=== PATIENT | female | born 1950 | race Caucasian/White ===

== ENCOUNTER 2019-08-17 06:00 | Outpatient (RCR) | payer SELFPAY | END 2019-08-30 00:01 | LOC: TPT 06:00 | PROVIDERS: Family Provider Nurse Practitioner Family; Visit Provider Orthopaedic Surgery | DX: M75.02 Adhesive capsulitis of left shoulder (principal); M75.01 Adhesive capsulitis of right shoulder | CPT/HCPCS: 97032; 97110 ×3; 97140 ×3; 97161; 97530; G0283 ==

== ENCOUNTER 2019-08-31 06:00 | Outpatient (RCR) | payer MEDICARE, MEDICAID, SELFPAY | END 2019-09-30 23:59 | disposition home or self-care (01) | LOC: TPT 06:00 | PROVIDERS: Family Provider Nurse Practitioner Family; PCP Nurse Practitioner Family; Visit Provider Orthopaedic Surgery | DX: M75.01 Adhesive capsulitis of right shoulder (principal) | CPT/HCPCS: 97110; 97140; G0283 ==

== ENCOUNTER 2019-10-01 06:00 | Outpatient (RCR) | payer MEDICARE, MEDICAID, SELFPAY | END 2019-10-29 23:59 | disposition home or self-care (01) | LOC: TPT 06:00 | PROVIDERS: Visit Provider Orthopaedic Surgery | DX: M75.02 Adhesive capsulitis of left shoulder (principal); M75.01 Adhesive capsulitis of right shoulder | CPT/HCPCS: 97110; 97140 ==

== ENCOUNTER 2020-04-23 12:52 | Outpatient (CLI) | payer MEDICARE, MEDICAID, SELFPAY ==
--- NOTE | 2020-04-23 13:03 | MM_ITS ---
WS: [id number] BILATERAL DIGITAL SCREENING MAMMOGRAPHY WITH CAD CLINICAL INFORMATION: SCREENING HISTORY: Screening mammogram. No current complaints. COMPARISON: April 21, 2019 TECHNIQUE: Bilateral CC and MLO views. FINDINGS: Left breast biopsy clip. Scattered fibroglandular densities bilaterally. No suspicious focal mass, asymmetry, calcifications, or architectural distortion. No evidence of malignancy. A few punctate calcifications. MM/[place] [id number] IMPRESSION: BI-RADS: 2-Benign FOLLOW UP: 1 Year Follow-up Recommend return to annual screening mammography.
== END 2020-04-23 12:53 | disposition home or self-care (01) ==
LOC: RADSHAW 12:57
PROVIDERS: PCP Nurse Practitioner Family; Visit Provider Nurse Practitioner Family
DX: Z12.31 Encounter for screening mammogram for malignant neoplasm of breast (principal)
CPT/HCPCS: 77067

== ENCOUNTER → 2020-11-13 09:19 | Outpatient (BNVA) | payer MEDICARE, MEDICAID, SELFPAY | PROVIDERS: PCP Nurse Practitioner Family; Visit Provider Obstetrics & Gynecology | DX: D25.9 Leiomyoma of uterus, unspecified (principal) | CPT/HCPCS: 76830 ==

== ENCOUNTER → 2020-11-20 11:20 | Outpatient (BNVA) | payer MEDICARE, MEDICAID, SELFPAY | PROVIDERS: PCP Nurse Practitioner Family; Visit Provider Obstetrics & Gynecology | DX: N95.0 Postmenopausal bleeding (principal) | CPT/HCPCS: 88305; 88360 ==

== ENCOUNTER 2021-02-25 10:08 | Outpatient (CLI) | payer MEDICARE, MEDICAID, SELFPAY ==
--- NOTE | 2021-02-26 09:39 | ONC CON_ITS ---
Dr. Li New Patient Note Patient: Alycia Kurtz Unit #: [id number]: 1950 Dicatated By: Fede Li M.D.Date of Visit: Feb 25, 2021 Onc MED New Patient/Consult Referring Physician: Dr. Alden Soto M.D. Chief Complaint: Endometrial cancer. 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 She had presented with postmenopausal bleeding. Her transvaginal ultrasound on 11/13/2020 showed evidence of uterine leiomyoma in the fundus measuring 1.44 x 1.65 x 3.05 cm. The endometrium measured 1.44 cm. She underwent endometrial biopsy on 11/20/2020. Pathology showed grade 2 endometrioid adenocarcinoma. She was referred to Dr. Soto. On 01/03/2021 she underwent robotic assisted total laparoscopic hysterectomy, bilateral salpingo-oophorectomy, bilateral pelvic sentinel lymph node biopsies, and cystoscopy with left ureteral stent placement. Pathology again showed grade 2 endometrial endometrioid adenocarcinoma measuring 7 x 6.8 cm. The depth of deepest myometrial invasion was 13 mm with the maximum myometrial thickness at that point measuring of 17 mm. The ectocervical/vaginal cuff and the parametrial/paracervical margins were uninvolved, but the right ovary did show focal involvement with endometrioid adenocarcinoma. There was metastatic carcinoma identified in the left external iliac sentinel lymph node and there was micrometastasis noted in the right external iliac sentinel lymph node. She is seen now for further management. She has had a good recovery from the surgery, but she does complain that she is tired all the time. She has limited activity due to the fatigue and to chronic pain, which appears to be due to a combination of degenerative arthritis and fibromyalgia. She manages the pain with a combination of tramadol and Voltaren gel. Her ECOG score is 2. She says she is eating, though not as much, and her weight is down about 30 pounds. She has not had fever. She sweats all the time, but that is chronic. She has allergic rhinitis and asthma, and she says her breathing is not real good. She has chronic cough. She does not complain of chest pain. She has very occasional nausea. She has a history of ulcerative colitis, which he manages that adequately now with probiotic. She has no complaints with bladder function. Her most significant pain is in the neck/shoulders and in the knees and feet. She does not complain of headache. She has just occasional dizziness. She was having numbness in her hands prior to the surgery, but that seems to have resolved. She has no other focal neurologic symptoms. Past Medical History: Her medical history includes anxiety, asthma, degenerative arthritis, fibromyalgia, history of ulcerative colitis, hyperlipidemia, hypertension, hypothyroidism, obesity, and type II diabetes. Past Surgical History: She underwent robotic assisted total laparoscopic hysterectomy, bilateral salpingo-oophorectomy, bilateral pelvic sentinel lymph node biopsies, and cystoscopy with left ureteral stent placement on 01/03/2021. Her only other surgery was a back procedure for a ruptured disc.in 1982. Medications: Arnuity Ellipta 1 Deshler(s) (of 50 mcg/act) Aerosol Powder, Breath Activated Inhalation b.i.d., Atorvastatin Calcium 1 (80 mg) Tablet Oral at bedtime, Benazepril HCl 1 (40 mg) Tablet Oral daily, Cetirizine HCl 1 (10 mg) Tablet Oral daily, Cholecalciferol (1.25 mg ) Capsule Oral q 2 weeks, clonazePAM 1 (1 mg) Tablet Oral t.i.d., Diclofenac Sodium 1 (1 %) Gel (jelly) Topical four times a day PRN, Gabapentin 1 (100 mg) Capsule Oral t.i.d., glipiZIDE 1 (10 mg) Tablet Oral b.i.d., Levothyroxine Sodium 1 (137 mcg) Tablet Oral every am, Meclizine HCl 1 (25 mg) Tablet Oral b.i.d. PRN, metFORMIN HCl 2 Tablet (of 500 mg) Oral b.i.d., Metoprolol Succinate ER 1 (25 mg) Tablet SR 24 HR Oral daily, traMADol HCl 1 (50 mg) Tablet Oral daily, Venlafaxine HCl ER 1 (150 mg) Capsule SR 24 HR Oral daily Allergies: Lyrica and Zocor. Social History: Ms. Kurtz is . She had smoked in the past up to 3 packs of cigarettes daily. She quit smoking approximately 2006. She does not drink alcohol. Family History: Father of brain tumor at age 76. Mother and heart disease at age 84. A sister with metastatic cancer, possibly from breast. An aunt had uterine cancer. Review Of Symptoms: Constitutional - She feels tired all the time and her activity is limited. She is eating, not as much. Her weight is down about 30 pounds. She has not had fever. She does complain that she sweats all the time, but that is chronic. ECOG score is 2, Eyes - No change in vision, ENMT - No hearing loss. She has tinnitus. She has sinus drainage. No mouth sores. No sore throat or difficulty swallowing, Hematologic/Lymphatic - No abnormal bruising or bleeding, Respiratory - She has shortness of breath and she has chronic cough. No pleuritic pain or hemoptysis, Cardiovascular - No angina pain. No palpitations, Gastrointestinal - She has very occasional nausea. She manages acid reflux with a probiotic. No diarrhea or constipation. No blood in the stool or black stools, Genitourinary (F) - No dysuria or hematuria. No urinary frequency. She does have some incontinence, Musculoskeletal - She has joint pain, especially in her neck and shoulders and in her knees and feet, Neurologic - No headache. She occasionally has dizziness. She was having numbness in both hands prior to surgery, but that has resolved now. No other focal neurologic symptoms, Psychiatric - She has some anxiety and depression. No insomnia. Vital Signs: Performed on Feb 25, 2021 11:27: 8, 8, 42.83 (HIGH), 2.20 sq.m, 65 in, 96 %, 89 /min, 18 /min, 131/75 mm(hg), 97.1 F (LOW), and 257.4 lbs (HIGH). Physical Examination: Constitutional - She looks pretty good generally, Eyes - Sclerae nonicteric. Conjunctivae clear, ENMT - No lesions noted in the oral cavity, Neck - No mass or thyromegaly, Hematologic/Lymphatic - No cervical, clavicular, or axillary adenopathy, Respiratory - Lungs sound clear with some decrease in air movement bilaterally, Cardiovascular - Heart rhythm is regular. There is no murmur, gallop, or rub noted, Abdomen - Distended. The incisions appear well-healed. Liver and spleen are not enlarged. There is no abdominal mass or ascites noted and there is no inguinal adenopathy, Back/Spine - No spine or CVA tenderness noted, Extremities - No edema. Pedal pulses are palpable bilaterally, Integumentary - No rashes. No suspicious skin lesions noted, Neurologic - No focal neurologic deficits noted. Problem List: 1. Grade 2 endometrioid adenocarcinoma of the endometrium, stage IIIC1 (pT3a, pN1a, M0). Mismatch repair analysis by IHC showed loss of expression of MLH1 and PMS2 and intact expression of MSH2 and MSH6. Methylation of the H MLH1 promoter region was detected by MLH1 promoter region methylation assay. 2. Hypertension. 3. Hyperlipidemia. 4. Type 2 diabetes. 5. Obesity. 6. Hypothyroidism. 7. Allergic rhinitis and asthma. 8. Degenerative arthritis. 9. Fibromyalgia. 10. History of ulcerative colitis. 11. Anxiety/depression. Problems Addressed with this Encounter and Plan: 1. 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 She underwent robotic assisted total laparoscopic hysterectomy, bilateral salpingo-oophorectomy, bilateral pelvic sentinel lymph node biopsies, and cystoscopy with left ureteral stent placement. Pathology showed focal involvement of the left left ovary and metastatic involvement in the bilateral external iliac sentinel lymph nodes. The pathology findings were reviewed with the patient. We discussed the fact that she has several high risk features with regard to recurrence, namely the depth of myometrial invasion, the metastatic involvement in the left ovary, and the lymph node involvement. As such, she is recommended to undergo post operative adjuvant therapy with both chemoradiation and with adjuvant carboplatin/paclitaxel chemotherapy. I have discussed this with Dr. Turner and plan will be to administer treatment per the PORTEC-3 clinical trial. I did review anticipated side effects with the chemotherapy which may include nausea/vomiting, alopecia, fatigue, low blood counts, and neuropathy, among others. At this point I will arrange for consultation with Dr. Turner and she will be scheduled to see one of the surgeons for placement Port-A-Cath venous access device. I anticipate starting treatment as soon as the radiation planning is completed. 2. She has ureteral stent in place that will need to be removed. I will contact Dr. Johnson to see if we can have that done locally. 3. 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 She will require germline testing, particularly in the context of her family history. Signed By: Fede Li M.D. <<Signature on File>>
== END 2021-02-25 10:09 | disposition home or self-care (01) ==
PROVIDERS: PCP Nurse Practitioner Family; Visit Provider Internal Medicine Medical Oncology
DX: C54.1 Malignant neoplasm of endometrium (principal); I10 Essential (primary) hypertension; E78.5 Hyperlipidemia, unspecified; E11.9 Type 2 diabetes mellitus without complications; E66.9 Obesity, unspecified; E03.9 Hypothyroidism, unspecified; J30.9 Allergic rhinitis, unspecified; J45.909 Unspecified asthma, uncomplicated; M19.90 Unspecified osteoarthritis, unspecified site; M79.7 Fibromyalgia; F41.9 Anxiety disorder, unspecified; F32.9 Major depressive disorder, single episode, unspecified; Z87.19 Personal history of other diseases of the digestive system; Z79.899 Other long term (current) drug therapy
CPT/HCPCS: 99205

== ENCOUNTER 2021-03-01 07:34 | Outpatient (CLI) | payer MEDICARE, MEDICAID, SELFPAY ==
--- NOTE | 2021-03-01 08:00 | XR_ITS ---
WS: [id number] KUB, AP view, 03/01/2021 Clinical Data: URETERAL STENT RETAINED Comparison: None. Findings: A left ureteral stent is in good position probably extending from the left renal pelvis into the blad chrissie. There is a large amount of fecal material and colon gas overlying the kidneys obscuring detail. No abnormal intraabdominal masses or calcifications are seen. There is no dilatated small bowel or ev idence of obstruction. There is osteoarthritic change of the left SI joint and pubic symphysis. XR/XR KUB [id number] Impression: 1. Left ureteral stent. 2. Large amount of fecal material throughout the colon.
== END 2021-03-01 07:35 | disposition home or self-care (01) ==
PROVIDERS: PCP Nurse Practitioner Family; Visit Provider Urology
DX: Z96.0 Presence of urogenital implants (principal)
CPT/HCPCS: 74018; 81003

== ENCOUNTER 2021-03-07 07:01 | Outpatient (CLI) | payer MEDICARE, MEDICAID, SELFPAY ==
--- NOTE | 2021-03-07 09:05 | N.ONRAD NP_ITS ---
Radiation Oncology Consultation Patient Name: Alycia Kurtz Date of : 1950 Date of Service: 03/07/2021 Attending Physician: Devon Turner M.D. Alycia Kurtz was seen in consultation this morning at the request of Fede Li M.D. for consideration of post-operative radiotherapy for the management of a recently diagnosed uterine cancer. 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 A transvaginal ultrasonography completed on November 13, 2020 identified a uterine leiomyoma measuring 3 cm and an endometrial thickness of 1.4 cm. An endometrial biopsy obtained on November 20, 2020 diagnosed a moderately differentiated endometrioid adenocarcinoma (FIGO grade II). A robotic assisted laparoscopic hysterectomy with bilateral salpingo-oophorectomy and bilateral pelvic sentinel lymph node mapping with cystoscopy and left ureteral stent placement was performed by Alden Simental M.D. at [facility] in [place], [place] on January 03, 2021. The pathology report was obtained from the outside hospital (directly reviewed by me) confirmed a FIGO grade 2 endometrioid carcinoma measuring 7 cm x 6.8 cm with myometrial invasion depth of 13 mm (myometrial thickness was 17 mm), involvement of the cervical stroma and right ovary,, and lymphovascular invasion present. Wayne lymph node sampling harvested two pelvic lymph nodes harboring one macrometastasis (left external iliac lymph node) and one micrometastasis (right external iliac lymph node). A mismatch repair analysis by immunohistochemical staining demonstrated loss of expression of the MLH1 gene. The patient was evaluated for postoperative pelvic radiotherapy. I reviewed with her the FIGO staging corresponding to her disease (FIGO stage IIIC1) and the National Comprehensive Cancer Network Guidelines recommending pelvic radiotherapy and vaginal brachytherapy. I also discussed the PORTEC-3 trial that demonstrated adjuvant chemoradiotherapy with or without vaginal brachytherapy in high-risk patients with endometrial cancer improved failure free survival. I would endorse a five week course of pelvic radiotherapy followed by vaginal brachytherapy (cervical stromal invasion was present). A computed tomographic radiotherapy planning scan with contrast in the treatment position will be required to delineate the clinical tumor volumes. The potential toxicities of pelvic radiotherapy were reviewed. The patient has verbalized understanding would like to proceed as recommended. The patient's medical treatment been discussed with Fede Li M.D. Signed by: Dr. Devon Turner 03/07/2021 9:04:29 AM
[2021-03-07 09:57] LABS: Basophils # 0.1 10^3/uL (0.0-0.1); Basophils % 0.9 %; Eosinophils # 0.3 10^3/uL (0.0-0.8); Eosinophils % 2.6 %; Hematocrit 40.1 % (37.0-47.0); Hemoglobin 12.2 g/dL (11.5-15.3); Lymphocytes # 3.2 10^3/uL (0.8-4.8); Lymphocytes % 28.9 %; Mean Corpuscular HGB Conc 30.4 g/dL (30.0-36.0); Mean Corpuscular Hemoglobin 28.4 pg (28.0-34.0); Mean Corpuscular Volume 93.3 fL (81-99); Mean Platelet Volume 10.2 fL (7.4-10.4); Monocytes # 0.7 10^3/uL (0.2-0.9); Monocytes % 6.2 %; Neutrophils # 6.71 10^3/uL (1.8-7.7); Neutrophils % 60.9 %; Nucleated Red Blood Cells % 0 %; Platelet Count 279 10^3/cmm (130-400); Red Cell Distribution Width 12.8 % (12.1-15.1)
[2021-03-07 10:22] LABS: Alanine Aminotransferase 38 U/L (0-33); Albumin Level 4.1 g/dL (3.5-5.2); Alkaline Phosphatase 97 IU/L (35-105); Anion Gap 14.1 (5-19); Aspartate Amino Transferase 28 U/L (0-32); Blood Urea Nitrogen 10 mg/dL (8-23); Calcium 8.7 mg/dL (8.5-10.5); Carbon Dioxide 25 mmol/L (22-29); Chloride 103 mmol/L (98-107); Globulin 2.8 g/dL (1.3-4.6); Glomerular Filtration Rate 71.3 mL/min (90-130); Glucose 179 mg/dL (65-115); Osmolality Calculated 290 mOsm/kg (285-295); Potassium 4.1 mmol/L (3.5-5.1); Sodium 138 mmol/L (136-145); Total Bilirubin 0.2 mg/dL (0.15-1.2); Total Protein 6.9 g/dL (6.6-8.7)
== END 2021-03-07 07:02 | disposition home or self-care (01) ==
PROVIDERS: PCP Nurse Practitioner Family; Visit Provider Radiology Radiation Oncology
DX: C55 Malignant neoplasm of uterus, part unspecified (principal); C77.8 Secondary and unspecified malignant neoplasm of lymph nodes of multiple regions; N95.0 Postmenopausal bleeding; Z79.899 Other long term (current) drug therapy
CPT/HCPCS: 36415; 80053; 85025; 87635; 99205

== ENCOUNTER 2021-03-08 08:43 | Outpatient (CLI) | payer MEDICARE, MEDICAID, SELFPAY ==
--- NOTE | 2021-03-08 10:30 | CT_ITS ---
WS: [id number] CT ABDOMEN AND PELVIS NONCONTRAST HISTORY: URETERAL OBSTRUCTION TECHNIQUE: Imaging performed through the abdomen and pelvis. Coronal and sagittal reformats are submi tted. All CT scans at [facility] use at least one of these dose optimization techniques: automated exposure control; mA and/or kV adjustment per patient size (includes targeted exams where d ose is matched to clinical indication); or iterative reconstruction. DLP: 1838.41 mGy.cm COMPARISON: None available. Lower thorax: Mild dependent changes at the lung bases. Small hiatal hernia. Liver: Hepatic steatosis and granuloma. No bile duct dilatation. Gallbladder: Cholelithiasis without evidence for acute cholecystitis. No bile duct dilatation. Mildly contracted gallbladder. Pancreas: Normal size and attenuation. Normal pancreatic duct. No pancreatitis or mass. Spleen: Normal. Adrenal glands: 5 mm RIGHT adrenal myelolipoma. Negative LEFT adrenal gland. Right kidney: Normal size kidney with no mass or hydronephrosis. Left kidney: Hypodense nodule in the upper pole cannot be further characterized. Coiled pigtail zora ter in the renal pelvis. No obstruction of the kidney. No calcification identified along the course o f the stent. Aorta: Mild atherosclerosis abdominal aorta with no aneurysm. No free fluid, intraperitoneal air or significant lymphadenopathy. GI tract: Moderate constipation with tortuous colon appendix is normal. There are a few small central mesenteric and RIGHT lower quadrant lymph nodes. No adenopathy. Abdominal wall: Small umbilical hernia contains fat only. Pelvis: Prior hysterectomy. Urinary bladder is well distended. Distal LEFT ureteral pigtail catheter is coiled in the bladder. Osseous structures: Mild spondylosis in the lumbar spine. No destructive bone lesions. LEFT femoral n [place]. CT/CT kidney stone [id number] IMPRESSION: 1. LEFT ureteral double pigtail stent coiled appropriately. 2. No LEFT renal obstruction or calcification identified. 3. Cholelithiasis without acute cholecystitis. 4. Hepatic steatosis. 5. Normal appendix. 6. Prior hysterectomy.
== END 2021-03-08 08:44 | disposition home or self-care (01) ==
LOC: RAD 08:50
PROVIDERS: PCP Nurse Practitioner Family; Visit Provider Urology
DX: N13.5 Crossing vessel and stricture of ureter without hydronephrosis (principal); Z96.0 Presence of urogenital implants; Z90.710 Acquired absence of both cervix and uterus; K76.0 Fatty (change of) liver, not elsewhere classified; K80.20 Calculus of gallbladder without cholecystitis without obstruction
CPT/HCPCS: 74176; 81003

== ENCOUNTER 2021-03-12 12:04 | Day surgery (SDC) | payer MEDICARE, MEDICAID, SELFPAY ==
[2021-03-11 17:10] VITALS: BMI 42.3
--- NOTE | 2021-03-12 | SCC_ITS ---
Procedure Done: Placement of PowerPort in the left subclavian vein Fluoroscopic guidance and interpretation for placement of catheter 12.4 seconds of fluoroscopic guidance, for a cumulative dose of 15.14 mGy, was provided to Dr. Rai by the radiology department. C-arm images of the chest were saved for the patient's permanent record. [facility]
--- NOTE | 2021-03-12 12:13 | W.PM.OPSUD ---
Surgery/Procedure H&P Update DATE OF PROCEDURE: March 12, 2021 DATE H&P PERFORMED: 03/11/21 H&P UPDATE INFORMATION: I have reviewed H&P completed within last 30 days, I have examined patient prior to procedure and No changes to prior documentation PLANNED PROCEDURE: Operation Date: 03/12/21 13:55 Proposed Procedures p Portacath Placement 50834 c54.1(Not Applicable) - Adam Rai MD
[2021-03-12 12:43] VITALS: BP 158/98; PULSE 83; RESP 18; TEMP 36.4; O2SAT 96
[2021-03-12 12:54] LABS: Glucose Point of Care 103 mg/dL (70-110)
[2021-03-12] MEDS: sodium chloride 0.9% 1,000 ML 30 ML IV (12:56)
--- NOTE | 2021-03-12 13:23 | SC_ITS ---
WS: [id number] INTRAOPERATIVE TECHNIQUE: 2 Spot fluoroscopic images for intraoperative purposes. FLUOROSCOPY TIME: 12.4 seconds CLINICAL INFORMATION: intra-op COMPARISON: None. FINDINGS: Left Port-A-Cath with tip in the distal SVC. No visualized pneumothorax. SC/C-arm FL for CVA [id number] IMPRESSION: Images obtained for intraoperative purposes.
--- NOTE | 2021-03-12 13:54 | ANES.PREANE2 ---
Documented by User: José Miguel Gonzalez Jr, [employer] MEMBER 03/12/21 13:57 Pre-Anesthetic Assessment Pre-Anesthetic Assessment: Height/Weight: Height 1.65 m Weight 115.212 kg Temp Pulse Resp BP Pulse Ox 97.5 F L 83 18 158/98 96 03/12/21 12:43 03/12/21 12:43 03/12/21 12:43 03/12/21 12:43 03/12/21 12:43 Preop Diagnosis: Endometrial cancer Proposed Procedure: Operation Date: 03/12/21 13:55 Proposed Procedures p Portacath Placement 29113 c54.1(Not Applicable) - Adam Rai MD Familial anesthetic complications: none Was Beta Elizabeth taken within 24 hours: Yes Was Clonidine taken within 24 hours: N/A Last intake: Intake Last Liquid Date 03/12/21 Last Liquid Time 09:00 Last Solid Date 03/11/21 Last Intake: 09:00 Social: Social History: No alcohol and No tobacco Exam: Pre-Anes Outpt Exam: alert, oriented x 3, clear to auscultation bilaterally and regular rate & rhythm Airway: Submandibular: WNL Cervical ROM: WNL MP: 2 Dentition: Full Pulmonary: Pulmonary: Asthma CV/HEM: CV/HEM: HTN : : None reported Hepatic: Hepatic: None reported GI: GI: GERD Metabolic: Metabolic: DM and Thyroid Musc/skel: Musc/skel: Lower Back Pain, OA/DJD and RA Neuropsych: Neuropsych: Anxiety and Depression Anesthetic Plan: ASA status: 3 Anesthesia: MAC Risk of > 500 ml blood loss (7ml/kg in children): No Meds/Allergies Current Medications: Current Medications Generic Name Dose Route Start Last Admin Trade Name Freq PRN Reason Stop Dose Admin Sodium Chloride 1,000 mls @ 30 ml s/hr 03/12/21 12:30 03/12/21 12:56 Sodium Chloride 0.9% IV 03/13/21 12:29 30 mls/hr .Q24H BRANDON Administration PFSH Anesthesia PFSH: Medical History (Updated 03/11/21 @ 14:26 by Adam Rai MD) Endometrial cancer Ureteral obstruction, left Ureteral stent retained Surgical History (Updated 03/11/21 @ 14:26 by Adam Rai MD) History of colonoscopy 10+yrs History of lumbar surgery S/P ASHANTI-BSO Family History Mother , AT 84 Hypertension Diabetes Heart disease Father , AT AGE 76 Cancer BRAIN Social History Alcohol intake: never Marital status: Single Current occupational status: retired History of recent travel: No Data Anesthesia Other Labs: Laboratory Results - last 48 hr 03/12/21 12:52 POC Glucose 103 Cardiac Studies: No Data to Display Documented by User: Ned Yusuf 03/12/21 14:07 PFSH Anesthesia PFSH: Medical History (Updated 03/11/21 @ 14:26 by Adam Rai MD) Endometrial cancer Ureteral obstruction, left Ureteral stent retained Surgical History (Updated 03/11/21 @ 14:26 by Adam Rai MD) History of colonoscopy 10+yrs History of lumbar surgery S/P ASHANTI-BSO Family History Mother , AT 84 Hypertension Diabetes Heart disease Father , AT AGE 76 Cancer BRAIN Social History Alcohol intake: never Marital status: Single Current occupational status: retired History of recent travel: No Data Anesthesia Cardiac Studies: No Data to Display
[2021-03-12] MEDS: heparin, porcine 1,000 unit/mL INJ 10 mL 10000 UNIT INJECTION (14:27)
[2021-03-12] MEDS: lidocaine 1% INJ 20 mL INJECTION (14:27)
[2021-03-12 14:50] VITALS: BP 189/98; PULSE 80; RESP 20; TEMP 36.8; O2SAT 96
[2021-03-12 14:55] VITALS: BP 193/97; PULSE 78; RESP 17; O2SAT 96
--- NOTE | 2021-03-12 14:57 | ANE.PACU2 ---
Inpatient post-anesthesia follow up: Airway intact: Yes Vital signs: Temperature 98.3 F Pulse Rate 78 Respiratory Rate 17 Blood Pressure 193/97 Pulse Oximetry 96 Oxygen Delivery Me thod Room Air Oxygen Flow Rate Fraction of Inspir ed Oxygen Hydration adequate: Yes Nausea and vomiting: No Pain level: 1 Mental status: Baseline
[2021-03-12 15:00] VITALS: BP 168/92; PULSE 76; RESP 20; TEMP 37; O2SAT 97
--- NOTE | 2021-03-12 15:00 | SUR.PHASEI ---
pt awake alert c/o of knee pain that was relieved by repositioning, pt on RA , taking ice chips, lt chest sites D/I
[2021-03-12 15:14] VITALS: BP 174/96; PULSE 69; RESP 18; TEMP 37; O2SAT 97
--- NOTE | 2021-03-13 14:43 | PM.OP ---
Operative Report Date of procedure: March 12, 2021 Pre-op Diagnosis: Endometrial cancer Post-op diagnosis: same Procedure Done: Placement of PowerPort in the left subclavian vein Fluoroscopic guidance and interpretation for placement of catheter Pathology: none sent Surgeon: Adam Rai Anesthesia: MAC Condition: stable Disposition: PACU Procedure: The patient was taken to the Operating Room and the chest and neck bilaterally were prepped and draped in a sterile manner after the antibiotic had been administered and shoulder rolls had been placed. A total of 10 mL of 1% lidocaine with 0.5% Marcaine was infiltrated under the clavicle on the left side at the site of the planned entry into the subclavian vein. An introducer needle was then used to access the subclavian vein under the clavicle and after withdrawing blood syringe was removed and a guidewire passed under fluoroscopy into the superior vena cava. The site of the planned port was then marked on the chest and a 15 blade was used to make a 3 cm skin incision this was extended into the subcutaneous tissue using electrocautery and a subcutaneous pocket over the pectoralis fascia was created 2-0 Vicryl suture was used to suture the port to the pectoral fascia in the pocket on 3 sides. The catheter, after having been flushed with hep saline, was attached to the tunneler and a tunnel created between the port site and the subclavian vein entry site. Under fluoroscopy the dilator sheath was passed over the guidewire into the proximal superior vena cava. The inner dilator was removed and the sheath left behind and~ the catheter was introduced through the peel-away sheath with the tip in the superior vena cava. The peel-away sheath was removed. The proximal end of the catheter was cut to the right size and was attached to the port. Using a Weiner needle the port was accessed, it withdrew blood easily and flushed easily. A final 5cc of heparin was used to flush the PowerPort. The subcutaneous tissue was approximated using interrupted 3-0 Vicryl sutures and the skin at the introducer site and the port site was closed using subcuticular running 4-0 Monocryl sutures. Surgical glue was applied and the patient was stable throughout the procedure. Fluoroscopic guidance and interpretation was performed for introduction of the guidewire in the left subclavian vein, passage of dilator and placement of catheter tip in the distal superior vena cava.
== END 2021-03-12 16:11 | disposition home or self-care (01) ==
PROVIDERS: PCP Nurse Practitioner Family; Visit Provider Surgery
PROC: (CPT 36556; principal; 2021-03-12 13:55)
DX: C54.1 Malignant neoplasm of endometrium (principal); J45.909 Unspecified asthma, uncomplicated; I10 Essential (primary) hypertension; E11.9 Type 2 diabetes mellitus without complications; K21.9 Gastro-esophageal reflux disease without esophagitis; M19.90 Unspecified osteoarthritis, unspecified site
CPT/HCPCS: 36556; 36416; 76000; 77001; 82962; C1788; J0690; J1644; J3010; J3490; J7030

== ENCOUNTER 2021-03-29 05:48 | Outpatient (RCR) | payer MEDICARE, MEDICAID, SELFPAY ==
--- NOTE | 2021-03-20 | CT_ITS ---
Radiation Therapy Planning CT images; total exam DLP: 851.95 mGy-cm MTDD
[2021-03-26 09:33] LABS: Basophils # 0.1 10^3/uL (0.0-0.1); Basophils % 0.8 %; Eosinophils # 0.3 10^3/uL (0.0-0.8); Hematocrit 39.8 % (37.0-47.0); Hemoglobin 12.4 g/dL (11.5-15.3); Lymphocytes # 3.7 10^3/uL (0.8-4.8); Mean Corpuscular HGB Conc 31.2 g/dL (30.0-36.0); Mean Corpuscular Hemoglobin 28.5 pg (28.0-34.0); Mean Corpuscular Volume 91.5 fL (81-99); Mean Platelet Volume 10.7 fL (7.4-10.4); Monocytes # 0.7 10^3/uL (0.2-0.9); Monocytes % 4.7 %; Neutrophils # 9.38 10^3/uL (1.8-7.7); Neutrophils % 66.1 %; Nucleated Red Blood Cells % 0 %; Platelet Count 317 10^3/cmm (130-400); Red Blood Count 4.35 10^6/uL (4.1-5.3); Red Cell Distribution Width 12.8 % (12.1-15.1); White Blood Count 14.2 10^3/uL (4.0-10.0)
[2021-03-26] MEDS: sodium chloride 0.9% 250 ML 75 ML IV (09:40)
[2021-03-26 09:58] LABS: Alanine Aminotransferase 45 U/L (0-33); Albumin Level 4.2 g/dL (3.5-5.2); Alkaline Phosphatase 108 IU/L (35-105); Anion Gap 17.3 (5-19); Aspartate Amino Transferase 39 U/L (0-32); Blood Urea Nitrogen 12 mg/dL (8-23); Calcium 8.9 mg/dL (8.5-10.5); Carbon Dioxide 23 mmol/L (22-29); Chloride 98 mmol/L (98-107); Globulin 3.2 g/dL (1.3-4.6); Glomerular Filtration Rate 55.1 mL/min (90-130); Glucose 200 mg/dL (65-115); Osmolality Calculated 283 mOsm/kg (285-295); Potassium 4.3 mmol/L (3.5-5.1); Sodium 134 mmol/L (136-145); Total Bilirubin 0.3 mg/dL (0.15-1.2); Total Protein 7.4 g/dL (6.6-8.7)
[2021-03-26] MEDS: palonosetron 0.25 mg/5 mL SDV IV (12:03)
[2021-03-26] MEDS: fosaprepitant 150 MG in sodium chloride 0.9% 150 ML 300 MG IV (12:25)
[2021-03-26] MEDS: FUROsemide 10 mg/mL SDV 2mL 20 MG IV (14:17)
[2021-03-26] MEDS: potassium chloride 20 MEQ in sodium chloride 0.9% 500 ML 250 MEQ IV (14:19)
== END 2021-03-30 23:59 | disposition home or self-care (01) ==
LOC: ONCMED 05:48
PROVIDERS: Absent Provider Specialist; PCP Nurse Practitioner Family; Visit Provider Internal Medicine Medical Oncology
DX: Z51.0 Encounter for antineoplastic radiation therapy (principal); Z51.11 Encounter for antineoplastic chemotherapy; C54.1 Malignant neoplasm of endometrium; Z79.899 Other long term (current) drug therapy
CPT/HCPCS: 77300; 77301; 77334; 77338; 77386; 77470; 80053; 85025; 96366; 96367; 96375; 96413; J1100; J1453; J1940; J2469; J3475; J3480; J7030; J7040; J7050; J9060

== ENCOUNTER 2021-04-29 05:32 | Outpatient (RCR) | payer MEDICARE, MEDICAID, SELFPAY ==
--- NOTE | 2021-04-01 09:00 | ONCRAD TMN_ITS ---
Radiation Oncology Treatment Management Note Patient Name: Alycia Kurtz Date of : 1950 Date of Service: 04/01/2021 Attending Physician: Devon Turner M.D. Alycia Kurtz is a 70 year old white female diagnosed with a FIGO stage IIIC1 uterine cancer. A robotic assisted laparoscopic hysterectomy with bilateral salpingo-oophorectomy and bilateral pelvic sentinel lymph node mapping with cystoscopy and left ureteral stent placement was performed by Alden Simental M.D. at [facility] in [place], [place] on January 03, 2021. The pathology report diagnosed a FIGO grade 2 endometrioid carcinoma measuring 7 cm x 6.8 cm with myometrial invasion depth of 13 mm (myometrial thickness was 17 mm), involvement of the cervical stroma, right ovary, and lymphovascular invasion present. [place] lymph node sampling harvested two pelvic lymph nodes harboring one macrometastasis (left external iliac lymph node) and one micrometastasis (right external iliac lymph node). A mismatch repair analysis by immunohistochemical staining demonstrated loss of expression of the MLH1 gene. The patient has received 9 Gy of a prescribed 45 [place] with an intensity modulated radiotherapy plan utilizing a step and shoot treatment technique. [id number] brachytherapy will be administered subsequent to pelvic radiotherapy. Weekly cisplatin (40 mg/m2) has been prescribed. Upon review of systems, she denied any gastrointestinal complaints related to radiotherapy. On physical examination, the patient weighed 265 lbs. Her temperature was 97.3 ???F with a blood pressure of 140/73 mmHg. Her pulse was 84 bpm and her respiratory rate was 20. No erythema within the treatment [place]. Continue pelvic radiotherapy as prescribed. Signed by: Dr. Devon Turner 04/01/2021 8:57:48 AM
[2021-04-01 09:19] LABS: Basophils # 0.1 10^3/uL (0.0-0.1); Basophils % 0.6 %; Eosinophils # 0.2 10^3/uL (0.0-0.8); Hematocrit 39.9 % (37.0-47.0); Hemoglobin 12.7 g/dL (11.5-15.3); Lymphocytes # 2.4 10^3/uL (0.8-4.8); Lymphocytes % 21.9 %; Mean Corpuscular HGB Conc 31.8 g/dL (30.0-36.0); Mean Corpuscular Hemoglobin 28.8 pg (28.0-34.0); Mean Corpuscular Volume 90.5 fL (81-99); Mean Platelet Volume 10.4 fL (7.4-10.4); Monocytes # 0.5 10^3/uL (0.2-0.9); Monocytes % 4.7 %; Neutrophils # 7.67 10^3/uL (1.8-7.7); Neutrophils % 70.1 %; Nucleated Red Blood Cells % 0 %; Platelet Count 293 10^3/cmm (130-400); Red Blood Count 4.41 10^6/uL (4.1-5.3); Red Cell Distribution Width 12.6 % (12.1-15.1)
[2021-04-01 09:46] LABS: Alanine Aminotransferase 33 U/L (0-33); Albumin Level 4.2 g/dL (3.5-5.2); Alkaline Phosphatase 102 IU/L (35-105); Anion Gap 15.2 (5-19); Aspartate Amino Transferase 27 U/L (0-32); Blood Urea Nitrogen 14 mg/dL (8-23); Calcium 8.9 mg/dL (8.5-10.5); Carbon Dioxide 23 mmol/L (22-29); Chloride 101 mmol/L (98-107); Globulin 3.1 g/dL (1.3-4.6); Glomerular Filtration Rate 71.3 mL/min (90-130); Glucose 144 mg/dL (65-115); Osmolality Calculated 283 mOsm/kg (285-295); Potassium 4.2 mmol/L (3.5-5.1); Sodium 135 mmol/L (136-145); Total Bilirubin 0.2 mg/dL (0.15-1.2); Total Protein 7.3 g/dL (6.6-8.7)
[2021-04-02] MEDS: HYDROcodone-acetaminophen 10-325 mg Tablet 0.5 TAB PO (09:45)
[2021-04-02] MEDS: alteplase 1 mg/mL SDV 2 mL 2 MG IV (09:49)
[2021-04-02] MEDS: sodium chloride 0.9% 250 ML 75 ML IV (10:52)
[2021-04-02] MEDS: fosaprepitant 150 MG in sodium chloride 0.9% 150 ML 300 MG IV (12:20)
[2021-04-02] MEDS: palonosetron 0.25 mg/5 mL SDV IV (12:48)
[2021-04-02] MEDS: FUROsemide 10 mg/mL SDV 2mL 20 MG IV (14:14)
[2021-04-02] MEDS: potassium chloride 20 MEQ in sodium chloride 0.9% 500 ML 250 MEQ IV (14:16)
--- NOTE | 2021-04-02 18:43 | ONC FU_ITS ---
Dr. Li Patient Follow-Up Note Patient: Alycia Kurtz Unit #: [id number]: 1950 Dicatated By: Fede Li M.D.Date of Visit:Apr 02, 2021 Onc Med Follow-up/Prog Note Chief Complaint: Endometrial cancer. 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 She had presented with postmenopausal bleeding. Her transvaginal ultrasound on 11/13/2020 showed evidence of uterine leiomyoma in the fundus measuring 1.44 x 1.65 x 3.05 cm. The endometrium measured 1.44 cm. She underwent endometrial biopsy on 11/20/2020. Pathology showed grade 2 endometrioid adenocarcinoma. She was referred to Dr. Soto. On 01/03/2021 she underwent robotic assisted total laparoscopic hysterectomy, bilateral salpingo-oophorectomy, bilateral pelvic sentinel lymph node biopsies, and cystoscopy with left ureteral stent placement. Pathology again showed grade 2 endometrial endometrioid adenocarcinoma measuring 7 x 6.8 cm. The depth of deepest myometrial invasion was 13 mm with the maximum myometrial thickness at that point measuring of 17 mm. The ectocervical/vaginal cuff and the parametrial/paracervical margins were uninvolved, but the right ovary did show focal involvement with endometrioid adenocarcinoma. There was metastatic carcinoma identified in the left external iliac sentinel lymph node and there was micrometastasis noted in the right external iliac sentinel lymph node. With those findings, she was recommended to undergo postoperative chemoradiation followed by adjuvant chemotherapy with carboplatin/paclitaxel. Her other medical illnesses include hypertension, hyperlipidemia, type 2 diabetes, hypothyroidism, and asthma. She has chronic pain associated with degenerative arthritis and fibromyalgia. She has a history of ulcerative colitis, and she also has anxiety/depression. She has a history of smoking, previously up to 3 packs of cigarettes daily. She quit smoking in 2006. INTERIM HISTORY: She began radiation concurrently with weekly cisplatin chemotherapy on 03/26/2021. She tolerated the initial cisplatin infusion without acute toxicity. She is seen for a follow-up visit. She has been feeling okay. She says her energy is not so good. Activity is also limited due to arthritis pain, which is mainly in the knees. Her ECOG score is 1. Her appetite comes and goes. She has not had fever. She has been having some sweating every evening. She has sinus drainage and cough. She has shortness of breath with activity. She does not complain of chest pain. She has had only rare episodes of nausea. She is not having acid reflux. Bowel and bladder function have been okay. She has pain in her knees and in her lower back, and she has limited mobility. She sometimes has headache and she also has had some dizziness. She has no numbness/paresthesia or other focal neurologic symptoms. Medications: Arnuity Ellipta 1 [place](s) (of 50 mcg/act) Aerosol Powder, Breath Activated Inhalation b.i.d., Atorvastatin Calcium 1 (80 mg) Tablet Oral at bedtime, Benazepril HCl 1 (40 mg) Tablet Oral daily, Cetirizine HCl 1 (10 mg) Tablet Oral daily, Cholecalciferol (1.25 mg ) Capsule Oral q 2 weeks, clonazePAM 1 (1 mg) Tablet Oral t.i.d., Diclofenac Sodium 1 (1 %) Gel (jelly) Topical four times a day PRN, Gabapentin 1 (100 mg) Capsule Oral t.i.d., glipiZIDE 1 (10 mg) Tablet Oral b.i.d., Levothyroxine Sodium 1 (137 mcg) Tablet Oral every am, Meclizine HCl 1 (25 mg) Tablet Oral b.i.d. PRN, metFORMIN HCl 2 Tablet (of 500 mg) Oral b.i.d., Metoprolol Succinate ER 1 (25 mg) Tablet SR 24 HR Oral daily, traMADol HCl 1 (50 mg) Tablet Oral daily, Venlafaxine HCl ER 1 (150 mg) Capsule SR 24 HR Oral daily Allergies: Lyrica and Zocor. Vital Signs: Performed on Apr 02, 2021 08:59 Height - 65.00 in Weight - 257 lbs (LOW) BSA - 2.20 sq.m BMI - 42.77 (HIGH) Temperature - 96 F (LOW) Pulse - 88 /min Respiration - 18 /min BP - 155/80 mm(hg) (HIGH) O2 Sat - 96 % Pain - 8 Fatigue - 6 Physical Examination: Constitutional - She looks pretty good generally, though she does have limited mobility, Eyes - Sclerae nonicteric. Conjunctivae clear, ENMT - No lesions noted in the oral cavity, Hematologic/Lymphatic - No cervical, clavicular, or axillary adenopathy, Respiratory - Lungs sound clear with some decrease in air movement bilaterally, Cardiovascular - Heart rhythm is regular. There is no murmur, gallop, or rub noted, Abdomen - Moderaely distended. Liver and spleen are not enlarged. There is no abdominal mass or ascites noted and there is no inguinal adenopathy, Extremities - No edema, Neurologic - No focal neurologic deficits noted. Lab/Imaging: CBC shows hemoglobin 12.7 g, white blood cell count 11,000, and platelet count 293,000. Comprehensive metabolic profile is unremarkable. Problem List: 1. Grade 2 endometrioid adenocarcinoma of the endometrium, stage IIIC1 (pT3a, pN1a, M0). Mismatch repair analysis by IHC showed loss of expression of MLH1 and PMS2 and intact expression of MSH2 and MSH6. Methylation of the MLH1 promoter region was detected by MLH1 promoter region methylation assay. 2. Hypertension. 3. Hyperlipidemia. 4. Type 2 diabetes. 5. Obesity. 6. Hypothyroidism. 7. Allergic rhinitis and asthma. 8. Degenerative arthritis. 9. Fibromyalgia. 10. History of ulcerative colitis. 11. Anxiety/depression. Problems Addressed with this Encounter and Plan: 1. 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 She underwent robotic assisted total laparoscopic hysterectomy, bilateral salpingo-oophorectomy, bilateral pelvic sentinel lymph node biopsies, and cystoscopy with left ureteral stent placement. Pathology showed focal involvement of the left left ovary and metastatic involvement in the bilateral external iliac sentinel lymph nodes. With those findings she was recommended to undergo post operative chemoradiation followed by adjuvant carboplatin/paclitaxel chemotherapy. She began radiation concurrently with weekly cisplatin chemotherapy on 03/26/2021. She had no acute toxicity with the initial cisplatin infusion. She continues to have limited mobility associated with arthritis pain in her knees and back and she also does have some component of fatigue. Overall, though, she appears to be tolerating her treatment well. She will proceed with her week to cisplatin at 40 mg/m??? by IV infusion. She will be scheduled for a follow-up visit in 1 week. 2. 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 She will require germline testing, particularly in the context of her family history. Signed By: Fede Li M.D. <<Signature on File>>
[2021-04-08 09:00] LABS: Basophils # 0.1 10^3/uL (0.0-0.1); Basophils % 0.6 %; Eosinophils # 0.2 10^3/uL (0.0-0.8); Eosinophils % 1.7 %; Hemoglobin 11.9 g/dL (11.5-15.3); Lymphocytes # 1.2 10^3/uL (0.8-4.8); Mean Corpuscular HGB Conc 31.3 g/dL (30.0-36.0); Mean Corpuscular Hemoglobin 28.3 pg (28.0-34.0); Mean Corpuscular Volume 90.5 fL (81-99); Mean Platelet Volume 9.9 fL (7.4-10.4); Monocytes # 0.5 10^3/uL (0.2-0.9); Monocytes % 5.4 %; Neutrophils # 7.38 10^3/uL (1.8-7.7); Nucleated Red Blood Cells % 0 %; Platelet Count 201 10^3/cmm (130-400); Red Cell Distribution Width 12.9 % (12.1-15.1); White Blood Count 9.3 10^3/uL (4.0-10.0)
--- NOTE | 2021-04-08 09:24 | ONCRAD TMN_ITS ---
Radiation Oncology Treatment Management Note Patient Name: Alycia Kurtz Date of : 1950 Date of Service: 04/08/2021 Attending Physician: Devon Turner M.D. Alycia Kurtz is a 70 year old white female diagnosed with a FIGO stage IIIC1 uterine cancer. A robotic assisted laparoscopic hysterectomy with bilateral salpingo-oophorectomy and bilateral pelvic sentinel lymph node mapping with cystoscopy and left ureteral stent placement was performed by Alden Simental M.D. at [facility] in [place], [place] on January 03, 2021. The pathology report diagnosed a FIGO grade 2 endometrioid carcinoma measuring 7 cm x 6.8 cm with myometrial invasion depth of 13 mm (myometrial thickness was 17 mm), involvement of the cervical stroma, right ovary, and lymphovascular invasion present. [place] lymph node sampling harvested two pelvic lymph nodes harboring one macrometastasis (left external iliac lymph node) and one micrometastasis (right external iliac lymph node). A mismatch repair analysis by immunohistochemical staining demonstrated loss of expression of the MLH1 gene. The patient has received 18 Gy of a prescribed 45 [place] with an intensity modulated radiotherapy plan utilizing a step and shoot treatment technique. [id number] brachytherapy will be administered subsequent to pelvic radiotherapy. Weekly cisplatin (40 mg/m2) has been prescribed. Upon review of systems, she described diarrhea. On physical examination, the patient weighed 261 lbs. Her temperature was 97 ???F with a blood pressure of 115/67 mmHg. Her pulse was 85 bpm and her respiratory rate was 18. No erythema within the treatment [place]. Continue pelvic radiotherapy as planned. Imodium was recommended. Signed by: Dr. Devon Turner 04/08/2021 9:22:19 AM
[2021-04-08 09:31] LABS: Alanine Aminotransferase 24 U/L (0-33); Alkaline Phosphatase 89 IU/L (35-105); Anion Gap 18.4 (5-19); Aspartate Amino Transferase 26 U/L (0-32); Blood Urea Nitrogen 9 mg/dL (8-23); Calcium 8.5 mg/dL (8.5-10.5); Carbon Dioxide 24 mmol/L (22-29); Chloride 100 mmol/L (98-107); Globulin 2.9 g/dL (1.3-4.6); Glomerular Filtration Rate 99.1 mL/min (90-130); Glucose 115 mg/dL (65-115); Osmolality Calculated 286 mOsm/kg (285-295); Potassium 4.4 mmol/L (3.5-5.1); Sodium 138 mmol/L (136-145); Total Bilirubin 0.4 mg/dL (0.15-1.2); Total Protein 6.9 g/dL (6.6-8.7)
[2021-04-09] MEDS: sodium chloride 0.9% 250 ML 75 ML IV (10:57)
[2021-04-09] MEDS: alteplase 1 mg/mL SDV 2 mL 2 MG IV (12:41)
[2021-04-09] MEDS: fosaprepitant 150 MG in sodium chloride 0.9% 150 ML 300 MG IV (13:00)
[2021-04-09] MEDS: palonosetron 0.25 mg/5 mL SDV IV (13:36)
[2021-04-09] MEDS: FUROsemide 10 mg/mL SDV 2mL 20 MG IV (15:03)
[2021-04-09] MEDS: potassium chloride 20 MEQ in sodium chloride 0.9% 500 ML 250 MEQ IV (15:04)
--- NOTE | 2021-04-09 18:14 | ONC FU_ITS ---
Dr. Li Patient Follow-Up Note Patient: Alycia Kurtz Unit #: [id number]: 1950 Dicatated By: Fede Li M.D.Date of Visit:Apr 09, 2021 Onc Med Follow-up/Prog Note Chief Complaint: Endometrial cancer. 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 She had presented with postmenopausal bleeding. Her transvaginal ultrasound on 11/13/2020 showed evidence of uterine leiomyoma in the fundus measuring 1.44 x 1.65 x 3.05 cm. The endometrium measured 1.44 cm. She underwent endometrial biopsy on 11/20/2020. Pathology showed grade 2 endometrioid adenocarcinoma. She was referred to Dr. Soto. On 01/03/2021 she underwent robotic assisted total laparoscopic hysterectomy, bilateral salpingo-oophorectomy, bilateral pelvic sentinel lymph node biopsies, and cystoscopy with left ureteral stent placement. Pathology again showed grade 2 endometrial endometrioid adenocarcinoma measuring 7 x 6.8 cm. The depth of deepest myometrial invasion was 13 mm with the maximum myometrial thickness at that point measuring of 17 mm. The ectocervical/vaginal cuff and the parametrial/paracervical margins were uninvolved, but the right ovary did show focal involvement with endometrioid adenocarcinoma. There was metastatic carcinoma identified in the left external iliac sentinel lymph node and there was micrometastasis noted in the right external iliac sentinel lymph node. With those findings, she was recommended to undergo postoperative chemoradiation followed by adjuvant chemotherapy with carboplatin/paclitaxel. Her other medical illnesses include hypertension, hyperlipidemia, type 2 diabetes, hypothyroidism, and asthma. She has chronic pain associated with degenerative arthritis and fibromyalgia. She has a history of ulcerative colitis, and she also has anxiety/depression. She has a history of smoking, previously up to 3 packs of cigarettes daily. She quit smoking in 2006. INTERIM HISTORY: She began radiation concurrently with weekly cisplatin chemotherapy on 03/26/2021. She tolerated the initial cisplatin infusion without acute toxicity, and she continued with her week to cisplatin on 04/02/2021. She is seen for a follow-up visit. She has been feeling pretty good generally. Last week she had developed pretty severe, but it resolved after treatment with Imodium. Diarrhea for 3 or 4 days her energy is about the same. She is doing light work. ECOG score is 1. Appetite is pretty good. She has no fever or night sweats. She has some allergy related sinus drainage and cough. She also has some shortness of breath. She does not complain of chest pain. She has no other GI or complaints. She has musculoskeletal pain related to degenerative arthritis and fibromyalgia. Lately the pain is been a little better. She does not complain of headache. She does have some dizziness, which is positional. She has no numbness/paresthesia or other focal neurologic symptoms. Medications: Arnuity Ellipta 1 [place](s) (of 50 mcg/act) Aerosol Powder, Breath Activated Inhalation b.i.d., Atorvastatin Calcium 1 (80 mg) Tablet Oral at bedtime, Benazepril HCl 1 (40 mg) Tablet Oral daily, Cetirizine HCl 1 (10 mg) Tablet Oral daily, Cholecalciferol (1.25 mg ) Capsule Oral q 2 weeks, clonazePAM 1 (1 mg) Tablet Oral t.i.d., Diclofenac Sodium 1 (1 %) Gel (jelly) Topical four times a day PRN, Gabapentin 1 (100 mg) Capsule Oral t.i.d., glipiZIDE 1 (10 mg) Tablet Oral b.i.d., Levothyroxine Sodium 1 (137 mcg) Tablet Oral every am, Meclizine HCl 1 (25 mg) Tablet Oral b.i.d. PRN, metFORMIN HCl 2 Tablet (of 500 mg) Oral b.i.d., Metoprolol Succinate ER 1 (25 mg) Tablet SR 24 HR Oral daily, traMADol HCl 1 (50 mg) Tablet Oral daily, Venlafaxine HCl ER 1 (150 mg) Capsule SR 24 HR Oral daily Allergies: Lyrica and Zocor. Vital Signs: Performed on Apr 09, 2021 10:49 Height - 65.00 in Weight - 265.2 lbs (HIGH) BSA - 2.23 sq.m BMI - 44.13 (HIGH) Temperature - 97.4 F (LOW) Pulse - 92 /min Respiration - 18 /min BP - 164/78 mm(hg) (HIGH) O2 Sat - 96 % Pain - 7 Fatigue - 6 Physical Examination: Constitutional - She looks pretty good generally, Eyes - Sclerae nonicteric. Conjunctivae clear, ENMT - No lesions noted in the oral cavity, Hematologic/Lymphatic - No cervical, clavicular, or axillary adenopathy, Respiratory - Lungs sound clear with some decrease in air movement bilaterally, Cardiovascular - Heart rhythm is regular. There is no murmur, gallop, or rub noted, Abdomen - Moderaely distended but soft. Liver and spleen are not enlarged. There is no abdominal mass or ascites noted and there is no inguinal adenopathy, Extremities - No edema, Neurologic - No focal neurologic deficits noted. Lab/Imaging: CBC shows hemoglobin 11.9 g, white blood cell count 9300, and platelet count 201,000. Comprehensive metabolic profile is unremarkable. Problem List: 1. Grade 2 endometrioid adenocarcinoma of the endometrium, stage IIIC1 (pT3a, pN1a, M0). Mismatch repair analysis by IHC showed loss of expression of MLH1 and PMS2 and intact expression of MSH2 and MSH6. Methylation of the MLH1 promoter region was detected by MLH1 promoter region methylation assay. 2. Hypertension. 3. Hyperlipidemia. 4. Type 2 diabetes. 5. Obesity. 6. Hypothyroidism. 7. Allergic rhinitis and asthma. 8. Degenerative arthritis. 9. Fibromyalgia. 10. History of ulcerative colitis. 11. Anxiety/depression. Problems Addressed with this Encounter and Plan: 1. 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 She underwent robotic assisted total laparoscopic hysterectomy, bilateral salpingo-oophorectomy, bilateral pelvic sentinel lymph node biopsies, and cystoscopy with left ureteral stent placement. Pathology showed focal involvement of the left left ovary and metastatic involvement in the bilateral external iliac sentinel lymph nodes. With those findings she was recommended to undergo post operative chemoradiation followed by adjuvant carboplatin/paclitaxel chemotherapy. She began radiation concurrently with weekly cisplatin chemotherapy on 03/26/2021. She had no acute toxicity with the initial cisplatin infusion. She did develop significant diarrhea following her week to cisplatin, but it was managed adequately with Imodium. She will proceed now with her week 3 cisplatin, at 40 mg/m??? by IV infusion, currently with radiation. She will take Imodium again as needed, but if she has diarrhea again, she will be given a dose reduction with her further chemotherapy. I will see her again in 1 week. 2. 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 She will require germline testing, particularly in the context of her family history. Signed By: Fede Li M.D. <<Signature on File>>
--- NOTE | 2021-04-15 09:07 | ONCRAD TMN_ITS ---
Radiation Oncology Treatment Management Note Patient Name: Alycia Kurtz Date of : 1950 Date of Service: 04/15/2021 Attending Physician: Devon Turner M.D. Alycia Kurtz is a 70 year old white female diagnosed with a FIGO stage IIIC1 uterine cancer. A robotic assisted laparoscopic hysterectomy with bilateral salpingo-oophorectomy and bilateral pelvic sentinel lymph node mapping with cystoscopy and left ureteral stent placement was performed by Alden Simental M.D. at [facility] in [place], [place] on January 03, 2021. The pathology report diagnosed a FIGO grade 2 endometrioid carcinoma measuring 7 cm x 6.8 cm with myometrial invasion depth of 13 mm (myometrial thickness was 17 mm), involvement of the cervical stroma, right ovary, and lymphovascular invasion present. [place] lymph node sampling harvested two pelvic lymph nodes harboring one macrometastasis (left external iliac lymph node) and one micrometastasis (right external iliac lymph node). A mismatch repair analysis by immunohistochemical staining demonstrated loss of expression of the MLH1 gene. The patient has received 27 Gy of a prescribed 45 [place] with an intensity modulated radiotherapy plan utilizing a step and shoot treatment technique. [id number] brachytherapy will be administered subsequent to pelvic radiotherapy. Weekly cisplatin (40 mg/m2) has been prescribed. Upon review of systems, she described lower extremity weakness. On physical examination, the patient weighed 263 lbs. Her temperature was 96.8 ???F with a blood pressure of 152/69 mmHg. Her pulse was 95 bpm and her respiratory rate was 18. No erythema within the treatment [place]. Continue pelvic radiotherapy as prescribed. Signed by: Dr. Devon Turner 04/15/2021 9:05:58 AM
[2021-04-16 09:41] LABS: Basophils # 0.1 10^3/uL (0.0-0.1); Basophils % 0.8 %; Eosinophils # 0.3 10^3/uL (0.0-0.8); Eosinophils % 4.8 %; Hematocrit 36.3 % (37.0-47.0); Hemoglobin 11.3 g/dL (11.5-15.3); Lymphocytes # 1.1 10^3/uL (0.8-4.8); Lymphocytes % 15.4 %; Mean Corpuscular HGB Conc 31.1 g/dL (30.0-36.0); Mean Corpuscular Volume 89.9 fl (81-99); Mean Platelet Volume 9.6 fL (7.4-10.4); Monocytes # 0.5 10^3/uL (0.2-0.9); Monocytes % 6.5 %; Neutrophils # 5.08 10^3/uL (1.8-7.7); Neutrophils % 72.1 %; Nucleated Red Blood Cells % 0 %; Platelet Count 203 10^3/cmm (130-400); Red Blood Count 4.04 10^6/uL (4.1-5.3); Red Cell Distribution Width 13.1 % (12.1-15.1); White Blood Count 7.1 10^3/uL (4.0-10.0)
[2021-04-16 10:10] LABS: Alanine Aminotransferase 23 U/L (0-33); Albumin Level 4.1 g/dL (3.5-5.2); Alkaline Phosphatase 94 IU/L (35-105); Anion Gap 16.2 (5-19); Aspartate Amino Transferase 17 U/L (0-32); Blood Urea Nitrogen 15 mg/dL (8-23); Calcium 9.1 mg/dL (8.5-10.5); Carbon Dioxide 23 mmol/L (22-29); Chloride 99 mmol/L (98-107); Glucose 143 mg/dL (65-115); Osmolality Calculated 281 mOsm/kg (285-295); Potassium 4.2 mmol/L (3.5-5.1); Sodium 134 mmol/L (136-145); Total Bilirubin 0.3 mg/dL (0.15-1.2); Total Protein 7.1 g/dL (6.6-8.7)
[2021-04-17] MEDS: alteplase 1 mg/mL SDV 2 mL 2 MG IV ×2 (09:43→11:05)
[2021-04-17] MEDS: sodium chloride 0.9% 250 ML 75 ML IV (11:30)
[2021-04-17 11:54] LABS: Magnesium 1.8 mg/dL (1.7-2.3)
[2021-04-17] MEDS: palonosetron 0.25 mg/5 mL SDV IV (13:08)
[2021-04-17] MEDS: fosaprepitant 150 MG in sodium chloride 0.9% 150 ML 300 MG IV (13:30)
[2021-04-17] MEDS: FUROsemide 10 mg/mL SDV 2mL 20 MG IV (14:55)
[2021-04-17] MEDS: potassium chloride 20 MEQ in sodium chloride 0.9% 500 ML 500 MEQ IV (14:57)
--- NOTE | 2021-04-18 12:06 | ONC FU_ITS ---
Dr. Li Patient Follow-Up Note Patient: Alycia Kurtz Unit #: [id number]: 1950 Dicatated By: Fede Li M.D.Date of Visit:Apr 17, 2021 Onc Med Follow-up/Prog Note Chief Complaint: Endometrial cancer. 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 She had presented with postmenopausal bleeding. Her transvaginal ultrasound on 11/13/2020 showed evidence of uterine leiomyoma in the fundus measuring 1.44 x 1.65 x 3.05 cm. The endometrium measured 1.44 cm. She underwent endometrial biopsy on 11/20/2020. Pathology showed grade 2 endometrioid adenocarcinoma. She was referred to Dr. Soto. On 01/03/2021 she underwent robotic assisted total laparoscopic hysterectomy, bilateral salpingo-oophorectomy, bilateral pelvic sentinel lymph node biopsies, and cystoscopy with left ureteral stent placement. Pathology again showed grade 2 endometrial endometrioid adenocarcinoma measuring 7 x 6.8 cm. The depth of deepest myometrial invasion was 13 mm with the maximum myometrial thickness at that point measuring of 17 mm. The ectocervical/vaginal cuff and the parametrial/paracervical margins were uninvolved, but the right ovary did show focal involvement with endometrioid adenocarcinoma. There was metastatic carcinoma identified in the left external iliac sentinel lymph node and there was micrometastasis noted in the right external iliac sentinel lymph node. With those findings, she was recommended to undergo postoperative chemoradiation followed by adjuvant chemotherapy with carboplatin/paclitaxel. Her other medical illnesses include hypertension, hyperlipidemia, type 2 diabetes, hypothyroidism, and asthma. She has chronic pain associated with degenerative arthritis and fibromyalgia. She has a history of ulcerative colitis, and she also has anxiety/depression. She has a history of smoking, previously up to 3 packs of cigarettes daily. She quit smoking in 2006. INTERIM HISTORY: She began radiation concurrently with weekly cisplatin chemotherapy on 03/26/2021. She tolerated the initial cisplatin infusion without acute toxicity, and she continued with her week 2 cisplatin on 04/02/2021 and with week 3 on 04/09/2021. She is seen for a follow-up visit. She has not been feeling as good. She says her legs have been bothering her more, mainly her arthritis and fibromyalgia pain. She also complains that she is getting more shaky and wobbly. She has been able to ambulate with a walker, but it is getting more difficult, and she does feel that she is at risk for falling. She has good appetite. She has no fever or night sweats. She has some allergy related sinus symptoms and she sometimes has cough. She has shortness of breath with activity. She does not complain of chest pain. She has had some nausea. She has had more diarrhea, but it is adequately managed with Imodium. She has no complaints. She does not complain of headache. She has poor balance. She has numbness in her right hand. Medications: Arnuity Ellipta 1 Redwood(s) (of 50 mcg/act) Aerosol Powder, Breath Activated Inhalation b.i.d., Atorvastatin Calcium 1 (80 mg) Tablet Oral at bedtime, Benazepril HCl 1 (40 mg) Tablet Oral daily, Cetirizine HCl 1 (10 mg) Tablet Oral daily, Cholecalciferol (1.25 mg ) Capsule Oral q 2 weeks, clonazePAM 1 (1 mg) Tablet Oral t.i.d., Diclofenac Sodium 1 (1 %) Gel (jelly) Topical four times a day PRN, Gabapentin 1 (100 mg) Capsule Oral t.i.d., glipiZIDE 1 (10 mg) Tablet Oral b.i.d., Levothyroxine Sodium 1 (137 mcg) Tablet Oral every am, Meclizine HCl 1 (25 mg) Tablet Oral b.i.d. PRN, metFORMIN HCl 2 Tablet (of 500 mg) Oral b.i.d., Metoprolol Succinate ER 1 (25 mg) Tablet SR 24 HR Oral daily, traMADol HCl 1 (50 mg) Tablet Oral daily, Venlafaxine HCl ER 1 (150 mg) Capsule SR 24 HR Oral daily Allergies: Lyrica and Zocor. Vital Signs: Performed on Apr 17, 2021 11:17 Height - 65.00 in Weight - 260 lbs (LOW) BSA - 2.21 sq.m BMI - 43.27 (HIGH) Temperature - 97 F (LOW) Pulse - 80 /min Respiration - 18 /min BP - 145/78 mm(hg) (HIGH) O2 Sat - 94 % (LOW) Pain - 8 Fatigue - 7 Physical Examination: Constitutional - She appears somewhat weak generally, Eyes - Sclerae nonicteric. Conjunctivae clear, ENMT - No lesions noted in the oral cavity, Hematologic/Lymphatic - No cervical, clavicular, or axillary adenopathy, Respiratory - Lungs sound clear with some decrease in air movement bilaterally, Cardiovascular - Heart rhythm is regular. There is no murmur, gallop, or rub noted, Abdomen - Moderaely distended but soft. Liver and spleen are not enlarged. There is no abdominal mass or ascites noted and there is no inguinal adenopathy, Extremities - No edema, Neurologic - There is some weakness in the lower extremities and she does have some postural instability. There are no focal neurologic deficits noted. Lab/Imaging: CBC shows hemoglobin 11.3 g, white blood cell count 7100, and platelet count 203,000. Comprehensive metabolic profile is unremarkable. Her magnesium is normal at 1.8 mg/dL. Problem List: 1. Grade 2 endometrioid adenocarcinoma of the endometrium, stage IIIC1 (pT3a, pN1a, M0). Mismatch repair analysis by IHC showed loss of expression of MLH1 and PMS2 and intact expression of MSH2 and MSH6. Methylation of the MLH1 promoter region was detected by MLH1 promoter region methylation assay. 2. Hypertension. 3. Hyperlipidemia. 4. Type 2 diabetes. 5. Obesity. 6. Hypothyroidism. 7. Allergic rhinitis and asthma. 8. Degenerative arthritis. 9. Fibromyalgia. 10. History of ulcerative colitis. 11. Anxiety/depression. Problems Addressed with this Encounter and Plan: 1. 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 She underwent robotic assisted total laparoscopic hysterectomy, bilateral salpingo-oophorectomy, bilateral pelvic sentinel lymph node biopsies, and cystoscopy with left ureteral stent placement. Pathology showed focal involvement of the left left ovary and metastatic involvement in the bilateral external iliac sentinel lymph nodes. With those findings she was recommended to undergo post operative chemoradiation followed by adjuvant carboplatin/paclitaxel chemotherapy. She began radiation concurrently with weekly cisplatin chemotherapy on 03/26/2021. She had no acute toxicity with the initial cisplatin infusion. She then continued with week 2 cisplatin on 04/02/2021 and with week 3 on 04/09/2021. She has had some treatment related diarrhea, but it has been adequately managed with Imodium. She will proceed now with her week 4 cisplatin, at 40 mg/m??? by IV infusion. She will continue Imodium as needed. I will see her again in 1 week. 2. She has chronic pain in her lower extremities. She also has weakness and shakiness, which has been getting worse. She has a limitation in mobility which significant enough to interfere with her ability to perform mobility-related ADL's. She has been able to ambulate with a walker, but it is getting increasingly difficult, and she feels that she is at risk for falling. As such, I am going to request a standard wheel chair for her, as she does have sufficient upper body strength to operate it and it will improve her ability to function and reduce her risk of falling. 3. 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 She will require germline testing, particularly in the context of her family history. Signed By: Fede Li M.D. <<Signature on File>>
--- NOTE | 2021-04-22 09:04 | ONCRAD TMN_ITS ---
Radiation Oncology Treatment Management Note Patient Name: Alycia Kurtz Date of : 1950 Date of Service: 04/22/2021 Attending Physician: Devon Turner M.D. Alycia Kurtz is a 70 year old white female diagnosed with a FIGO stage IIIC1 uterine cancer. A robotic assisted laparoscopic hysterectomy with bilateral salpingo-oophorectomy and bilateral pelvic sentinel lymph node mapping with cystoscopy and left ureteral stent placement was performed by Alden Simental M.D. at [facility] in [place], [place] on January 03, 2021. The pathology report diagnosed a FIGO grade 2 endometrioid carcinoma measuring 7 cm x 6.8 cm with myometrial invasion depth of 13 mm (myometrial thickness was 17 mm), involvement of the cervical stroma, right ovary, and lymphovascular invasion present. [place] lymph node sampling harvested two pelvic lymph nodes harboring one macrometastasis (left external iliac lymph node) and one micrometastasis (right external iliac lymph node). A mismatch repair analysis by immunohistochemical staining demonstrated loss of expression of the MLH1 gene. The patient has received 36 Gy of a prescribed 45 Mascorro with an intensity modulated radiotherapy plan utilizing a step and shoot treatment technique. Kalt-okyg-ohye brachytherapy will be administered subsequent to pelvic radiotherapy. Weekly cisplatin (40 mg/m2) has been prescribed. Upon review of systems, she denied any complaints related to radiotherapy. On physical examination, the patient weighed 262 lbs. Her temperature was 96.9 ???F with a blood pressure of 133/72 mmHg. Her pulse was 65 bpm and her respiratory rate was 18. There was no erythema within the treatment hubbard. Continue pelvic radiotherapy as planned. Signed by: Dr. Devon Turner 04/22/2021 9:02:45 AM
[2021-04-22 09:51] LABS: Basophils % 0.7 %; Eosinophils # 0.2 10^3/uL (0.0-0.8); Eosinophils % 3.4 %; Hematocrit 36.2 % (37.0-47.0); Hemoglobin 11.2 g/dL (11.5-15.3); Lymphocytes # 0.8 10^3/uL (0.8-4.8); Lymphocytes % 12.5 %; Mean Corpuscular HGB Conc 30.9 g/dL (30.0-36.0); Mean Corpuscular Hemoglobin 28.6 pg (28.0-34.0); Mean Corpuscular Volume 92.6 fl (81-99); Mean Platelet Volume 9.8 fL (7.4-10.4); Monocytes # 0.4 10^3/uL (0.2-0.9); Neutrophils # 4.66 10^3/uL (1.8-7.7); Neutrophils % 75.9 %; Nucleated Red Blood Cells % 0 %; Platelet Count 174 10^3/cmm (130-400); Red Blood Count 3.91 10^6/uL (4.1-5.3); Red Cell Distribution Width 13.6 % (12.1-15.1); White Blood Count 6.1 10^3/uL (4.0-10.0)
[2021-04-22 10:35] LABS: Alanine Aminotransferase 24 U/L (0-33); Albumin Level 4.1 g/dL (3.5-5.2); Alkaline Phosphatase 94 IU/L (35-105); Anion Gap 18.2 (5-19); Aspartate Amino Transferase 18 U/L (0-32); Blood Urea Nitrogen 9 mg/dL (8-23); Calcium 8.5 mg/dL (8.5-10.5); Carbon Dioxide 23 mmol/L (22-29); Chloride 99 mmol/L (98-107); Globulin 2.6 g/dL (1.3-4.6); Glucose 146 mg/dL (65-115); Osmolality Calculated 283 mOsm/kg (285-295); Potassium 4.2 mmol/L (3.5-5.1); Sodium 136 mmol/L (136-145); Total Bilirubin 0.2 mg/dL (0.15-1.2); Total Protein 6.7 g/dL (6.6-8.7)
[2021-04-23] MEDS: sodium chloride 0.9% 250 ML IV (09:29)
[2021-04-23] MEDS: famotidine 20 mg/2 mL INJ IVP (09:40)
[2021-04-23] MEDS: palonosetron 0.25 mg/5 mL SDV IVP (11:21)
--- NOTE | 2021-04-23 11:41 | ONC FU_ITS ---
Dr. Li Patient Follow-Up Note Patient: Alycia Kurtz Unit #: [id number]: 1950 Dicatated By: Fede Li M.D.Date of Visit:Apr 23, 2021 Onc Med Follow-up/Prog Note Chief Complaint: Endometrial cancer. 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 She had presented with postmenopausal bleeding. Her transvaginal ultrasound on 11/13/2020 showed evidence of uterine leiomyoma in the fundus measuring 1.44 x 1.65 x 3.05 cm. The endometrium measured 1.44 cm. She underwent endometrial biopsy on 11/20/2020. Pathology showed grade 2 endometrioid adenocarcinoma. She was referred to Dr. Soto. On 01/03/2021 she underwent robotic assisted total laparoscopic hysterectomy, bilateral salpingo-oophorectomy, bilateral pelvic sentinel lymph node biopsies, and cystoscopy with left ureteral stent placement. Pathology again showed grade 2 endometrial endometrioid adenocarcinoma measuring 7 x 6.8 cm. The depth of deepest myometrial invasion was 13 mm with the maximum myometrial thickness at that point measuring of 17 mm. The ectocervical/vaginal cuff and the parametrial/paracervical margins were uninvolved, but the right ovary did show focal involvement with endometrioid adenocarcinoma. There was metastatic carcinoma identified in the left external iliac sentinel lymph node and there was micrometastasis noted in the right external iliac sentinel lymph node. With those findings, she was recommended to undergo postoperative chemoradiation followed by adjuvant chemotherapy with carboplatin/paclitaxel. Her other medical illnesses include hypertension, hyperlipidemia, type 2 diabetes, hypothyroidism, and asthma. She has chronic pain associated with degenerative arthritis and fibromyalgia. She has a history of ulcerative colitis, and she also has anxiety/depression. She has a history of smoking, previously up to 3 packs of cigarettes daily. She quit smoking in 2006. INTERIM HISTORY: She began radiation concurrently with weekly cisplatin chemotherapy on 03/26/2021. She tolerated the initial cisplatin infusion without acute toxicity, and she continued with her week 2 cisplatin on 04/02/2021, with week 3 on 04/09/2021, and with week 4 on 04/16/2021. She is seen for a follow-up visit. Since her treatment last week, she has been having more diarrhea. It is not every day, but when she has it her bowel movements occur as frequently as every 15 minutes all morning. It is no longer being controlled adequately with Imodium. She is not having any diarrhea today, though. Her energy is about the same. She is able to do some light work. Appetite is variable. She does not have fever or night sweats. She has had no mouth sores. She does have some sinus drainage and cough. She has shortness of breath with activity. Her breathing is about the same. She does not complain of chest pain. She has just occasional mild nausea. Bladder function is normal. She has arthritis pain, which is about the same. She does not complain of headache. She has having some dysequilibrium. She had just one episode of numbness in her right hand. She has no other focal neurologic symptoms. Medications: Arnuity Ellipta 1 Easley(s) (of 50 mcg/act) Aerosol Powder, Breath Activated Inhalation b.i.d., Atorvastatin Calcium 1 (80 mg) Tablet Oral at bedtime, Benazepril HCl 1 (40 mg) Tablet Oral daily, Cetirizine HCl 1 (10 mg) Tablet Oral daily, Cholecalciferol (1.25 mg ) Capsule Oral q 2 weeks, clonazePAM 1 (1 mg) Tablet Oral t.i.d., Diclofenac Sodium 1 (1 %) Gel (jelly) Topical four times a day PRN, Gabapentin 1 (100 mg) Capsule Oral t.i.d., glipiZIDE 1 (10 mg) Tablet Oral b.i.d., Levothyroxine Sodium 1 (137 mcg) Tablet Oral every am, Meclizine HCl 1 (25 mg) Tablet Oral b.i.d. PRN, metFORMIN HCl 2 Tablet (of 500 mg) Oral b.i.d., Metoprolol Succinate ER 1 (25 mg) Tablet SR 24 HR Oral daily, traMADol HCl 1 (50 mg) Tablet Oral daily, Venlafaxine HCl ER 1 (150 mg) Capsule SR 24 HR Oral daily Allergies: Lyrica and Zocor. Vital Signs: Performed on Apr 23, 2021 08:44 Height - 65.00 in Weight - 261.2 lbs (LOW) BSA - 2.22 sq.m BMI - 43.47 (HIGH) Temperature - 97.3 F (LOW) Pulse - 95 /min Respiration - 18 /min BP - 148/76 mm(hg) (HIGH) O2 Sat - 98 % Pain - 8 Fatigue - 7 Physical Examination: Constitutional - She appears somewhat weak generally, Eyes - Sclerae nonicteric. Conjunctivae clear, ENMT - No lesions noted in the oral cavity, Hematologic/Lymphatic - No cervical, clavicular, or axillary adenopathy, Respiratory - Lungs sound clear with some decrease in air movement bilaterally, Cardiovascular - Heart rhythm is regular. There is no murmur, gallop, or rub noted, Abdomen - Mildly distended but soft. Liver and spleen are not enlarged. There is no abdominal mass or ascites noted and there is no inguinal adenopathy, Extremities - No edema, Neurologic - There is some weakness in the lower extremities. There are no focal neurologic deficits noted. Lab/Imaging: CBC shows hemoglobin 11.2 g, white blood cell count 6100, and platelet count 174,000. Comprehensive metabolic profile is unremarkable. Problem List: 1. Grade 2 endometrioid adenocarcinoma of the endometrium, stage IIIC1 (pT3a, pN1a, M0). Mismatch repair analysis by IHC showed loss of expression of MLH1 and PMS2 and intact expression of MSH2 and MSH6. Methylation of the MLH1 promoter region was detected by MLH1 promoter region methylation assay. 2. Hypertension. 3. Hyperlipidemia. 4. Type 2 diabetes. 5. Obesity. 6. Hypothyroidism. 7. Allergic rhinitis and asthma. 8. Degenerative arthritis. 9. Fibromyalgia. 10. History of ulcerative colitis. 11. Anxiety/depression. Problems Addressed with this Encounter and Plan: 1. 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 She underwent robotic assisted total laparoscopic hysterectomy, bilateral salpingo-oophorectomy, bilateral pelvic sentinel lymph node biopsies, and cystoscopy with left ureteral stent placement. Pathology showed focal involvement of the left left ovary and metastatic involvement in the bilateral external iliac sentinel lymph nodes. With those findings she was recommended to undergo post operative chemoradiation followed by adjuvant carboplatin/paclitaxel chemotherapy. She began radiation concurrently with weekly cisplatin chemotherapy on 03/26/2021. She had no acute toxicity with the initial cisplatin infusion. She then continued treatment weekly. She is now at week 5. She has had some ongoing problems with diarrhea, and it has worsened since her treatment last week. It is no longer being managed adequately with Imodium, but overall her toxicity remains acceptable. She will proceed with her week 5 cisplatin, but with the dosage reduced to 70 mg. She will be given a prescription for Lomotil for the diarrhea, and she will be given additional IV hydration as needed. I will see her again in 1 week. 2. 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 She will now have germline testing. Signed By: Fede Li M.D. <<Signature on File>>
[2021-04-23] MEDS: FUROsemide 10 mg/mL SDV 2mL 20 MG IV (13:32)
[2021-04-23] MEDS: potassium chloride 20 MEQ in sodium chloride 0.9% 500 ML 255 MEQ IV (13:34)
--- NOTE | 2021-04-29 09:19 | ONCRAD TMN_ITS ---
Radiation Oncology Weekly Treatment Management Patient: Jerardo Henderson MR#: [id number] : 1950> Attending Physician: Dr. Burton Rizzo Date of Service: 04/29/2021 Referring Physician(s) : Dr. Alden Soto Diagnosis: C54.1 - Malignant neoplasm of endometrium, Diagnosed 11/20/2020 (Active) Stage IIIC1, Radiotherapy to date: Course: Pelvis 2020, Treatment Site: Pelvis 45Gy, Ref. ID: [id number], Energy: 15X, Dose/Fx (cGy): 180, #Fx: , Dose Correction (cGy): 0, Total Dose (cGy): 4,320, Start Date: 03/26/2021, Elapsed Days: 34 Reason for visit: The patient is being seen today as part of their regularly scheduled weekly on treatment visits to assess for acute toxicities from radiotherapy. Review of Systems: She finishes external beam radiation to the pelvis tomorrow. She has an appointment scheduled with Dr. Cook at [facility] in [place] for brachytherapy. She says that she will receive 3 sessions. She is having some difficulty arranging transportation. She has the phone number for [facility] radiation if she needs to modify her appointments. She has tolerated treatment well. She has no bladder complaints whatsoever. She did develop diarrhea early on in treatment. She has generic Lomotil to take. She seems reluctant to take it. I talked her about to her about the possibility of dehydration and encouraged her to take the Lomotil. She has no skin complaints. Vital Signs: Performed on 04/29/2021 8:54 AM BMI - 42.834 kg/m2 (high), Height - 65.00 in, Weight - 257.4 lbs, Temperature - 97.2 f, Pulse - 97 /min, Respiration - 20 /min, O2 Sat - 96 %, Pain - 7 and BP - 139/ 64 mm(hg)(/low). Physical Exam: Alert, oriented, no acute distress. No respiratory distress. The inguinal areas and anterior pelvic wall have no skin reaction at all. In the upper intergluteal fold she has mild erythema. Imaging: Radiation therapy imaging related to accurate target localization (i.e. KV, MV and CBCT) was reviewed. Appropriate changes, if any, were made to ensure treatment accuracy. Plan: Finish external beam radiation tomorrow. She will see Dr. Li tomorrow, though she does not think any additional chemotherapy is planned. She will see Dr. Turner in 1 month. She will also schedule follow-up with Dr. Soto and will be seeing Dr. Cook as noted above. Signed by: Dr. Burton Rizzo 04/29/2021 9:18:36 AM
[2021-04-29 09:36] LABS: Basophils % 0.4 %; Eosinophils # 0.1 10^3/uL (0.0-0.8); Eosinophils % 2.3 %; Hematocrit 34.8 % (37.0-47.0); Hemoglobin 10.8 g/dL (11.5-15.3); Lymphocytes # 0.4 10^3/uL (0.8-4.8); Lymphocytes % 7.5 %; Mean Corpuscular Hemoglobin 28.5 pg (28.0-34.0); Mean Corpuscular Volume 91.8 fl (81-99); Mean Platelet Volume 9.2 fL (7.4-10.4); Monocytes # 0.4 10^3/uL (0.2-0.9); Monocytes % 6.9 %; Neutrophils # 4.31 10^3/uL (1.8-7.7); Neutrophils % 82.3 %; Nucleated Red Blood Cells % 0 %; Platelet Count 173 10^3/cmm (130-400); Red Blood Count 3.79 10^6/uL (4.1-5.3); Red Cell Distribution Width 14.4 % (12.1-15.1); White Blood Count 5.2 10^3/uL (4.0-10.0)
[2021-04-29 10:05] LABS: Alanine Aminotransferase 44 U/L (0-33); Alkaline Phosphatase 97 IU/L (35-105); Anion Gap 15.3 (5-19); Aspartate Amino Transferase 72 U/L (0-32); Blood Urea Nitrogen 7 mg/dL (8-23); Calcium 8.8 mg/dL (8.5-10.5); Carbon Dioxide 24 mmol/L (22-29); Chloride 97 mmol/L (98-107); Globulin 2.9 g/dL (1.3-4.6); Glucose 139 mg/dL (65-115); Osmolality Calculated 274 mOsm/kg (285-295); Potassium 4.3 mmol/L (3.5-5.1); Sodium 132 mmol/L (136-145); Total Bilirubin 0.4 mg/dL (0.15-1.2); Total Protein 6.9 g/dL (6.6-8.7)
--- NOTE | 2021-05-02 08:58 | N.ONRD TS_ITS ---
Radiation Oncology Treatment Summary Patient: Jerardo>Santiago MR#: [id number] : 1950> Age: 71> Sex: Female Dictated by: Dr. Burton Rizzo Date of Service: 04/30/2021 Referring Physician(s) : Dr. Alden Soto Diagnosis: C54.1 - Malignant neoplasm of endometrium, Diagnosed 11/20/2020 (Active) Stage IIIC1, Radiotherapy to Date: Course: Pelvis 2020, Treatment Site: Pelvis 45Gy, Ref. ID: [id number], Energy: 15X, Dose/Fx (cGy): 180, #Fx: 24 / 25, Dose Correction (cGy): 0, Total Dose (cGy): 4,320, Start Date: 03/26/2021, End Date: 04/29/2021, Elapsed Days: 34 Clinical Summary: The patient tolerated RT and concomitant weekly chemotherapy well. However, late in treatment, she did develop diarrhea which was not adequately controlled with Imodium. Dr. Li gave her a prescription for Lomotil, which was quite helpful, though she was reluctant to take it. The day before her last scheduled treatment, she was seen and encouraged to take the Lomotil in adequate doses to control the diarrhea in order to avoid dehydration. As she finished treatment, she had no bladder complaints whatsoever. She had very mild erythema of the skin in the intergluteal fold. She was experiencing moderate fatigue. Although when the patient was seen after her 24th treatment, it was made clear by the treatment staff, the nurse, and myself that she had one treatment to go, she declined to come in for the last treatment. Based on a telephone conversation with the treatment staff, there had been no significant decline in her condition. She just elected not to come. Plan: 1. Follow-up with Dr. Turner in 1 month 2 She has an appointment with Dr. Cook to schedule vaginal brachytherapy. Her understanding is that she will receive three sessions. 3. She will also see Dr. Soto in follow-up. Signed by: Dr. Burton Rizzo>05/02/2021 8:56:13 AM <<Signature on File>>
== END 2021-04-30 23:59 | disposition home or self-care (01) ==
LOC: ONCMED 05:32
PROVIDERS: Absent Provider Specialist; PCP Nurse Practitioner Family; Visit Provider Internal Medicine Medical Oncology
DX: Z51.0 Encounter for antineoplastic radiation therapy (principal); Z51.11 Encounter for antineoplastic chemotherapy; C54.1 Malignant neoplasm of endometrium; I10 Essential (primary) hypertension; E78.5 Hyperlipidemia, unspecified; E11.9 Type 2 diabetes mellitus without complications; E66.9 Obesity, unspecified; E03.9 Hypothyroidism, unspecified; J30.9 Allergic rhinitis, unspecified; J45.909 Unspecified asthma, uncomplicated; M19.90 Unspecified osteoarthritis, unspecified site; M79.7 Fibromyalgia; F41.9 Anxiety disorder, unspecified; F32.9 Major depressive disorder, single episode, unspecified; Z87.19 Personal history of other diseases of the digestive system; Z79.899 Other long term (current) drug therapy
CPT/HCPCS: 36415; 36591; 36593; 77336; 77386; 80053; 83735; 85025; 96366; 96367; 96375; 96376; 96413; 99214; J1100; J1453; J1940; J2469; J2997; J3475; J3480; J3490; J7030; J7040; J7050; J9060

== ENCOUNTER 2021-05-08 03:42 | Emergency (ER) | payer MEDICARE, MEDICAID, SELFPAY ==
[2021-05-08 03:47] VITALS: BP 146/61; PULSE 100; RESP 28; TEMP 36.9; O2SAT 84; BMI 41.5
--- NOTE | 2021-05-08 03:48 | ECG_ITS ---
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 Measurements Intervals Mozelle Rate: 95 P: 12 KS: 172 QRS: 14 QRSD: 83 T: 23 QT: 314 QTc: 396 Interpretive Statements SINUS RHYTHM LOW QRS VOLTAGE IN PRECORDIAL LEADS [QRS DEFLECTION < 1.0 mV IN CHEST LEADS] No previous ECG available for comparison Electronically Signed On 05-09-2021 8:58:27 CDT by Svitlana Quintanilla M.D. [id number]
--- NOTE | 2021-05-08 03:48 | XRR_ITS ---
PROCEDURE INFORMATION: Exam: XR Chest Exam date and time: 05/08/2021 3:48 AM Age: 71 years old Clinical indication: Shortness of breath; Prior surgery; Surgery type: Chest port; Patient HX: SOB. History of cervical cancer. TECHNIQUE: Imaging protocol: XR of the chest. Views: 1 view. Total images: 1 COMPARISON: CT kidney stone [id number] 03/08/2021 9:13 AM FINDINGS: Tubes, catheters and devices: A left subclavian central venous catheter is present, with its tip overlying the region of the superior vena cava. Lungs: Nonspecific bilateral left greater than right opacities, favoring atelectasis or pneumonia. Pleural spaces: Unremarkable. No pleural effusion. No pneumothorax. Heart/Mediastinum: Low lung volumes are present, accentuating cardiac size and pulmonary markings. Bones/joints: Spinal degenerative changes are evident. XR/XR chest 1V portable [id number] IMPRESSION: 1. A left subclavian central venous catheter is present, with its tip overlying the region of the superior vena cava. 2. Low lung volumes are present, accentuating cardiac size and pulmonary markings. 3. Nonspecific bilateral left greater than right opacities, favoring atelectasis or pneumonia.
--- NOTE | 2021-05-08 04:09 | ED_ITS ---
HPI - Weakness General: Chief complaint: Weakness Stated complaint: SOB Time Seen by Provider: 05/08/21 03:42 Source: patient and EMS Mode of arrival: EMS Limitations: no limitations History of Present Illness: HPI Narrative: 71-year-old female with history of cervical cancer who is on chemo and radiation. She states she received her last dose a little over a week ago and states that over the last 5 days she has been having weakness along with decreased appetite. States she has been so weak she had difficulty walking. Patient is also had shortness of breath and is requir ing 5 L of oxygen here and is 82% on room air. She states she does not wear oxygen at home. She has had no known sick contacts did not receive her Covid vaccine. Denies any known fever. Denies any worsening improving factors. Associated symptoms: Denies chest pain, chills, dysuria, easy bruising, fever(s), nausea or vomiting Review of Systems Const: Denies: fever(s), chills, body aches or change in appetite Eyes: Denies: blurry vision or eye discomfort ENMT: Denies: throat pain or dental pain Card: Denies: chest pain Resp: Reports: dyspnea and non-productive cough GI: Denies: abdominal pain, nausea, vomiting or diarrhea : Denies: dysuria Musc: Denies: neck pain or back pain Skin/Breast: Denies: rash Neuro: Reports: weakness in extremities Psych: Denies: depression Devang/Lymph: Denies: easy bruising All/Imm: Denies: urticaria PFSH ED PFSH: Medical History Endometrial cancer Ureteral obstruction, left Ureteral stent retained Surgical History History of colonoscopy 10+yrs History of lumbar surgery Port-A-Cath in place (03/12/21) S/P ASHANTI-BSO Family History Mother , AT 84 Hypertension Diabetes Heart disease Father , AT AGE 76 Cancer BRAIN Social History Alcohol intake: never Marital status: Single Current occupational status: retired History of recent travel: No Physical Exam Const: COMMON NORMALS: no acute distress and patient oriented x3 GENERAL APPEARANCE: in distress and ill appearing HENMT: COMMON NORMALS: normocephalic and atraumatic HEAD & SCALP: normocephalic and atraumatic Eye: COMMON NORMALS: Equal, round and reactive pupils present and EOMs intact bilaterally PUPIL: Yes Equal, round and reactive pupils present Neck/C-Spine: COMMON NORMALS: full ROM and supple Chest: COMMONS NORMALS: normal inspection of the chest and normal palpation of entire chest wall Resp: COMMON NORMALS: normal respiratory effort, No retractions and No use of accessory muscles AUSCULTATION: rales Cardio: COMMON NORMALS: regular rate, regular rhythm and No murmurs present (Cardio) RATE: regular rate RHYTHM: regular rhythm GI: COMMON NORMALS: Normal to inspection, nondistended, normoactive bowel sounds present, Soft to palpation, non-tender and no masses PALPATION: Yes Soft to palpation Extremity: COMMON NORMALS: normal to inspection and full ROM Neuro: COMMON NORMALS: patient oriented x3, moves all extremities and no focal motor deficits Psych: COMMON NORMALS: mental status grossly normal, Normal thought process present and cooperative THOUGHT PROCESS: Normal thought process present Skin: COMMON NORMALS: no rashes or lesions noted and no wounds GENERAL SKIN EXAM: no rashes or lesions noted Course Vital Signs: Vital signs: Vital Signs Temperature 98.4 F 05/08/21 03:47 Pulse Rate 96 05/08/21 04:10 Respiratory Rate 22 H 05/08/21 04:10 Blood Pressure 110/86 05/08/21 04:10 Pulse Oximetry 90 05/08/21 04:10 MDM - Weakness MDM Narrative: Medical decision making narrative: Patient presents with dyspnea along with weakness and did test positive for Covid. Patient is unvaccinated he did not have Covid last year. Patient is on chemo and radiation with last treatment little over a week ago. X-ray here does show findings consistent with Covid pneumonia and she is requiring 5 L here to keep her above 90%. I spoke to hospitalist at [facility] and will transfer there due to bed availability. Lab Data: Labs: Lab Results 05/08/21 05/08/21 05/08/21 Range/Units 04:08 04:08 04:15 WBC 2.0 L (4.0-10.0) 10^3/ uL RBC 3.65 L (4.1-5.3) 10^6/u L Hgb 10.4 L (11.5-15.3) g/dL Hct 32.1 L (37.0-47.0) % MCV 87.9 (81-99) fl MCH 28.5 (28.0-34.0) pg MCHC 32.4 (30.0-36.0) g/dL RDW 15.9 H (12.1-15.1) % Plt Count 198 (130-400) 10^3/c mm MPV 10.5 H (7.4-10.4) fL Neut % (Auto) 77.9 % Lymph % (Auto) 11.3 % [place] % (Auto) 9.8 % Eos % (Auto) 0.0 % Baso % (Auto) 0.0 % Neut # (Auto) 1.59 L (1.8-7.7) 10^3/u L Lymph # (Auto) 0.2 L (0.8-4.8) 10^3/u L [place] # (Auto) 0.2 (0.2-0.9) 10^3/u L Eos # (Auto) 0.0 (0.0-0.8) 10^3/u L Baso # (Auto) 0.0 (0.0-0.1) 10^3/u L Nucleated RBC % (a uto) 0 % Nucleated RBCs # 0.0 /100WBC Specimen Type Arterial Sample Site Radial, right ABG pH 7.41 (7.35-7.45) ABG pCO2 37.4 (35-45) mmHg ABG pO2 65.6 L (80.0-100.0) mmH g ABG HCO3 23.5 (22-26) mmol/L ABG Base Excess -1.0 (-2.0-2.0) mmol/ L Kale Test Pos Hematocrit 34.4 L (37-47) % O2 Delivery Device Nc O2 Liters/Min 4.5 % Oxyacetylene Burner ID Renard SARS-CoV-2 Ag (Rap id) Positive H (Negative) Imaging Data^: CXR: Attestation: I personally reviewed and interpreted this imaging study as fol lows: My impression: perihilar infiltrates c/w covid pneumonia EKG Data^: EKG 1: Attestation: I personally reviewed and interpreted this EKG as follows: EKG interpretation date: 05/08/21 EKG interpretation time: 04:07 Interpretation: nsr hr [address] or t wave abnormalities qrs 83 qtc 367 Discharge Plan Discharge Patient Disposition: Xfer Short-Term Hosp Clinical Impression: Pneumonia due to 2019-nCoV Condition: Stable Coding Level of Care Code ED Take Away Worker for Chg Fwd Exam Comprehensive
[2021-05-08 04:10] VITALS: BP 110/86; PULSE 96; RESP 22; O2SAT 90
[2021-05-08 04:24] LABS: ABG PCO2 37.4 mmHg (35-45); ABG PH Result 7.41 (7.35-7.45); Arterial Blood Gas Hematocrit 34.4 % (37-47); Blood Gas Allen Test Pos; Blood Gas LPM 4.5 %; Blood Gas Sample Site Radial, right; Blood Gas Sample Type Arterial; HCO3 ABG 23.5 mmol/L (22-26); Oxygen Device NC; PO2 ABG 65.6 mmHg (80.0-100.0)
[2021-05-08 04:39] LABS: Hematocrit 32.1 % (37.0-47.0); Hemoglobin 10.4 g/dL (11.5-15.3); Lymphocytes # 0.2 10^3/uL (0.8-4.8); Lymphocytes % 11.3 %; Mean Corpuscular HGB Conc 32.4 g/dL (30.0-36.0); Mean Corpuscular Hemoglobin 28.5 pg (28.0-34.0); Mean Corpuscular Volume 87.9 fl (81-99); Mean Platelet Volume 10.5 fL (7.4-10.4); Monocytes # 0.2 10^3/uL (0.2-0.9); Monocytes % 9.8 %; Neutrophils # 1.59 10^3/uL (1.8-7.7); Neutrophils % 77.9 %; Nucleated Red Blood Cells % 0 %; Platelet Count 198 10^3/cmm (130-400); Red Blood Count 3.65 10^6/uL (4.1-5.3); Red Cell Distribution Width 15.9 % (12.1-15.1)
[2021-05-08 05:01] LABS: SARS Covid-2 Antigen Positive (Negative)
[2021-05-08 05:45] VITALS: BP 140/97; PULSE 111; RESP 24
[2021-05-08 05:55] LABS: Bilirubin Urine 1+ (Negative); Blood Urine 2+ (Negative); Glucose Urine UA Norm (Normal); Ketones Urine 1+ (Negative); Nitrate Urine Negative (Negative); Protein Urine Trace (Negative); Urine Appearance Cloudy (CLEAR); Urine Color Dark Yellow (Yellow); pH Urine 5 (5-7)
[2021-05-08 05:56] LABS: Add Urine Culture? Yes; Add Urine Microscopic? YES; Bacteria Urine 4+ /hpf; Coarse Granular Casts Urine 0-4 /lpf; Leukocyte Esterase Urine 2+ (Negative); RBC Urine 0-4 /hpf (0-2); Squamous Epithelial Cell Urine 0-4 /hpf (0-5); Urobilinogen Urine Norm (Negative); WBC Urine >100 /hpf (0-5)
[2021-05-08] MEDS: remdesivir 200 MG in sodium chloride 0.9% (100 ml) 60 ML 100 MG IV (06:00)
--- NOTE | 2021-05-08 06:20 | PC.NURSE ---
report called to Diogo STEWART
[2021-05-08 06:34] VITALS: BP 140/97; PULSE 111; RESP 24; TEMP 36.9; O2SAT 90
[2021-05-08] MEDS: dexamethasone 10 mg/mL INJ IVP (06:34)
[2021-05-08 06:38] LABS: Lactic Sepsis W/Reflex 1.1 mmol/L (0.5-2.2)
[2021-05-08 06:49] LABS: Alanine Aminotransferase 29 U/L (0-33); Albumin Level 3.5 g/dL (3.5-5.2); Alkaline Phosphatase 64 IU/L (35-105); Anion Gap 19.4 (5-19); Aspartate Amino Transferase 38 U/L (0-32); Blood Urea Nitrogen 16 mg/dL (8-23); C Reactive Protein 37.7 mg/L (0.0-4.9); Calcium 8.3 mg/dL (8.5-10.5); Carbon Dioxide 21 mmol/L (22-29); Chloride 96 mmol/L (98-107); Glomerular Filtration Rate 62.1 mL/min (90-130); Glucose 148 mg/dL (65-115); NT Pro B Type Natriuretic Pept 55 pg/mL (0-125); Osmolality Calculated 278 mOsm/kg (285-295); Potassium 4.4 mmol/L (3.5-5.1); Sodium 132 mmol/L (136-145); Total Bilirubin 0.3 mg/dL (0.15-1.2); Total Protein 7.5 g/dL (6.6-8.7)
[2021-05-08 07:15] LABS: INR 1.01 (0.8-1.2)
[2021-05-08 07:18] LABS: D Dimer 1.53 ug/mIFEU (0-0.59)
== END 2021-05-08 08:07 | disposition short-term general hospital (02) ==
PROVIDERS: Emergency Provider Emergency Medicine
DX: U07.1 COVID-19 (principal); J12.82 Pneumonia due to coronavirus disease 2019; Z85.41 Personal history of malignant neoplasm of cervix uteri; Z85.89 Personal history of malignant neoplasm of other organs and systems; Z79.899 Other long term (current) drug therapy
CPT/HCPCS: 36600; 71045; 80053; 81001; 82803; 83605; 83880; 85025; 85378; 85610; 86140; 87040; 87077; 87086; 87186; 87426; 93005; 96365; 96375; 99285; J1100

== ENCOUNTER 2021-08-13 15:33 | Outpatient (CLI) | payer MEDICARE, MEDICAID, SELFPAY ==
[2021-08-13 17:40] LABS: Basophils # 0.1 10^3/uL (0.0-0.1); Basophils % 0.6 %; Eosinophils # 0.6 10^3/uL (0.0-0.8); Eosinophils % 5.3 %; Hemoglobin 10.5 g/dL (11.5-15.3); Lymphocytes # 1.9 10^3/uL (0.8-4.8); Lymphocytes % 17.5 %; Mean Corpuscular HGB Conc 30.9 g/dL (30.0-36.0); Mean Corpuscular Volume 90.7 fl (81-99); Mean Platelet Volume 10.2 fL (7.4-10.4); Monocytes # 0.6 10^3/uL (0.2-0.9); Monocytes % 5.7 %; Neutrophils # 7.49 10^3/uL (1.8-7.7); Neutrophils % 70.5 %; Nucleated Red Blood Cells % 0 %; Platelet Count 292 10^3/cmm (130-400); Red Blood Count 3.75 10^6/uL (4.1-5.3); Red Cell Distribution Width 13.6 % (12.1-15.1); White Blood Count 10.6 10^3/uL (4.0-10.0)
[2021-08-13 18:48] LABS: Alanine Aminotransferase 19 U/L (0-33); Alkaline Phosphatase 88 IU/L (35-105); Aspartate Amino Transferase 20 U/L (0-32); Blood Urea Nitrogen 9 mg/dL (8-23); Calcium 8.6 mg/dL (8.5-10.5); Carbon Dioxide 22 mmol/L (22-29); Chloride 102 mmol/L (98-107); Globulin 3.5 g/dL (1.3-4.6); Glomerular Filtration Rate 99.1 mL/min (90-130); Glucose 117 mg/dL (65-115); Osmolality Calculated 288 mOsm/kg (285-295); Sodium 139 mmol/L (136-145); Total Bilirubin 0.2 mg/dL (0.15-1.2); Total Protein 7.5 g/dL (6.6-8.7)
--- NOTE | 2021-08-17 17:23 | ONC FU_ITS ---
Dr. Li Patient Follow-Up Note Patient: Alycia Kurtz Unit #: [id number]: 1950 Dicatated By: Fede Li M.D.Date of Visit:Aug 13, 2021 Onc Med Follow-up/Prog Note Chief Complaint: Endometrial cancer. 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 She had presented with postmenopausal bleeding. Her transvaginal ultrasound on 11/13/2020 showed evidence of uterine leiomyoma in the fundus measuring 1.44 x 1.65 x 3.05 cm. The endometrium measured 1.44 cm. She underwent endometrial biopsy on 11/20/2020. Pathology showed grade 2 endometrioid adenocarcinoma. She was referred to Dr. Soto. On 01/03/2021 she underwent robotic assisted total laparoscopic hysterectomy, bilateral salpingo-oophorectomy, bilateral pelvic sentinel lymph node biopsies, and cystoscopy with left ureteral stent placement. Pathology again showed grade 2 endometrial endometrioid adenocarcinoma measuring 7 x 6.8 cm. The depth of deepest myometrial invasion was 13 mm with the maximum myometrial thickness at that point measuring of 17 mm. The ectocervical/vaginal cuff and the parametrial/paracervical margins were uninvolved, but the right ovary did show focal involvement with endometrioid adenocarcinoma. There was metastatic carcinoma identified in the left external iliac sentinel lymph node and there was micrometastasis noted in the right external iliac sentinel lymph node. With those findings, she was recommended to undergo postoperative chemoradiation followed by adjuvant chemotherapy with carboplatin/paclitaxel. Her other medical illnesses include hypertension, hyperlipidemia, type 2 diabetes, hypothyroidism, and asthma. She has chronic pain associated with degenerative arthritis and fibromyalgia. She has a history of ulcerative colitis, and she also has anxiety/depression. She has a history of smoking, previously up to 3 packs of cigarettes daily. She quit smoking in 2006. INTERIM HISTORY: She began radiation concurrently with weekly cisplatin chemotherapy on 03/26/2021. She tolerated the initial cisplatin infusion without acute toxicity, and she continued with her week 2 cisplatin on 04/02/2021, with week 3 on 04/09/2021, with week 4 on 04/17/2021 and with week 5 on 04/23/2021. She completed radiation on 04/29/2021 to a total dose of 4320 cGy. She completed 24 of 25 planned fractions. For some reason she failed to come in for the final treatment. On 05/08/2021 she was admitted to the hospital with pneumonia in association with COVID-19 virus infection. She was confined in total for a month and 10 days between acute care and rehab. She has been back home since mid May, but she is still requiring supplemental oxygen. As result of that illness, she did not receive brachytherapy or adjuvant chemotherapy. She is seen for a follow-up visit. She still has very limited activity, but she is able to do housework as long she takes her time. Her ECOG score is 1. Her appetite declined significantly. She says she lost more than 50 pounds. She does not have fever or night sweats. She has some sinus drainage and cough. She is short of breath with activity, even with oxygen on. She does not complain of chest pain. She has no GI complaints other than acid reflux, which she is managing with Prilosec. She has frequent urination. She has arthritis pain, particularly in her neck and shoulders, but also in her knees and hands. She does not complain of headache. She occasionally has dizziness. She has no numbness/paresthesia or other focal neurologic symptoms. Medications: Acidophilus 1 Tablet Tablet, chewable Oral daily, Amoxicillin 1 Tablet (of 500 mg) Capsule Oral t.i.d., Arnuity Ellipta 1 [place](s) (of 50 mcg/act) Aerosol Powder, Breath Activated Inhalation b.i.d., Atorvastatin Calcium 1 (80 mg) Tablet Oral at bedtime, Benazepril HCl 1 (40 mg) Tablet Oral daily, Cetirizine HCl 1 (10 mg) Tablet Oral daily, Cholecalciferol (1.25 mg ) Capsule Oral q 2 weeks, clonazePAM 1 (1 mg) Tablet Oral t.i.d., Diclofenac Sodium 1 (1 %) Gel (jelly) Topical four times a day PRN, Flonase Sensimist (27.5 mcg/spray) Suspension Nasal Take as Directed, Gabapentin 1 (100 mg) Capsule Oral t.i.d., glipiZIDE 1 (10 mg) Tablet Oral b.i.d., Guaiatussin AC (100-10 mg/5mL) Syrup Oral Take as Directed, Levothyroxine Sodium 1 (137 mcg) Tablet Oral every am, Meclizine HCl 1 (25 mg) Tablet Oral b.i.d. PRN, metFORMIN HCl 2 Tablet (of 500 mg) Oral b.i.d., Metoprolol Succinate ER 1 (25 mg) Tablet SR 24 HR Oral daily, traMADol HCl 1 (50 mg) Tablet Oral daily, Venlafaxine HCl ER 1 (150 mg) Capsule SR 24 HR Oral daily Allergies: Lyrica and Zocor. Vital Signs: Performed on Aug 13, 2021 16:12 Height - 65.00 in Temperature - 97.7 F (LOW) Pulse - 107 /min (HIGH) Respiration - 18 /min BP - 135/80 mm(hg) O2 Sat - 97 % Pain - 6 Fatigue - 4 Physical Examination: Constitutional - She appears somewhat weak generally, Eyes - Sclerae nonicteric. Conjunctivae clear, ENMT - No lesions noted in the oral cavity, Hematologic/Lymphatic - No cervical, clavicular, or axillary adenopathy, Respiratory - Lungs show some decrease in air movement bilaterally. There are scattered rales, Cardiovascular - Heart rhythm is regular. There is no murmur, gallop, or rub noted, Abdomen - Mildly distended but soft. Liver and spleen are not enlarged. There is no abdominal mass or ascites noted and there is no inguinal adenopathy, Extremities - No edema, Neurologic - No focal neurologic deficits noted. Lab/Imaging: Test performed on Aug 13, 2021 16:28 Sodium 139 mmol/L Potassium 4.0 mmol/L Chloride 102 mmol/L CO2 22 mmol/L Anion Gap 19.0 BUN 9 mg/dL Creatinine 0.6 mg/dL Cr Clearance (Est) 169.0600 mL/min eGFR 99.1 mL/min Glucose 117 mg/dL Osmolality - Calculated 288 mOsm/kg Calcium 8.6 mg/dL Protein, Total 7.5 g/dL Albumin 4.0 g/dL Globulin 3.5 g/dL Bilirubin, Total 0.2 mg/dL ALT (SGPT) 19 U/L AST (SGOT) 20 U/L Alkaline Phosphatase 88 IU/L WBC 10.6 10 3/uL RBC 3.75 10 6/uL HGB 10.5 g/dL HCT 34.0 % MCV 90.7 fl MCH 28.0 pg MCHC 30.9 g/dL RDW 13.6 % Platelet Count 292 10 3/cmm MPV 10.2 fL Neutrophils 7.49 10 3/uL Lymphocytes 1.9 10 3/uL Monocytes 0.6 10 3/uL Eosinophils 0.6 10 3/uL Basophils 0.1 10 3/uL Neutrophil % 70.5 % Lymphocyte % 17.5 % Monocyte % 5.7 % Eosinophil % 5.3 % Basophils % 0.6 % NRBC % 0 % Problem List: 1. Grade 2 endometrioid adenocarcinoma of the endometrium, stage IIIC1 (pT3a, pN1a, M0). Mismatch repair analysis by IHC showed loss of expression of MLH1 and PMS2 and intact expression of MSH2 and MSH6. Methylation of the MLH1 promoter region was detected by MLH1 promoter region methylation assay. 2. Hypertension. 3. Hyperlipidemia. 4. Type 2 diabetes. 5. Obesity. 6. Hypothyroidism. 7. Allergic rhinitis and asthma. 8. Degenerative arthritis. 9. Fibromyalgia. 10. History of ulcerative colitis. 11. Anxiety/depression. Problems Addressed with this Encounter and Plan: 1. 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 She underwent robotic assisted total laparoscopic hysterectomy, bilateral salpingo-oophorectomy, bilateral pelvic sentinel lymph node biopsies, and cystoscopy with left ureteral stent placement. Pathology showed focal involvement of the left left ovary and metastatic involvement in the bilateral external iliac sentinel lymph nodes. With those findings she was recommended to undergo post operative chemoradiation followed by adjuvant carboplatin/paclitaxel chemotherapy. She began radiation concurrently with weekly cisplatin chemotherapy on 03/26/2021. She completed radiation on 04/29/2021 to a total dose of 4320 cGy. She completed 24 of 25 planned fractions. For some reason she failed to come in for the final treatment. During that time she received a total of 5 weekly infusions of cisplatin. On 05/08/2021 she was admitted to the hospital with pneumonia in association with COVID-19 virus infection. She was confined in total for a month and 10 days between acute care and rehab. She has been back home since mid May, but she is still requiring supplemental oxygen. As result of that illness, she did not receive brachytherapy or adjuvant chemotherapy. At this point she is still recovering from the COVID-19 illness. She will be scheduled for a follow-up visit with restaging CT scans in 1 month. 2. 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 Her germline testing was negative. Signed By: Fede Li M.D. <<Signature on File>>
== END 2021-08-13 15:34 | disposition home or self-care (01) ==
LOC: ONCMED 15:38
PROVIDERS: PCP Nurse Practitioner Family; Visit Provider Internal Medicine Medical Oncology
DX: C54.1 Malignant neoplasm of endometrium (principal); U07.1 COVID-19; I10 Essential (primary) hypertension; E78.5 Hyperlipidemia, unspecified; E11.9 Type 2 diabetes mellitus without complications; E03.9 Hypothyroidism, unspecified; E66.9 Obesity, unspecified; F41.9 Anxiety disorder, unspecified; F32.A Depression, unspecified; J45.909 Unspecified asthma, uncomplicated; Z79.899 Other long term (current) drug therapy
CPT/HCPCS: 36591; 80053; 85025; 99214

== ENCOUNTER 2021-08-22 09:37 | Outpatient (CLI) | payer MEDICARE, MEDICAID, SELFPAY ==
--- NOTE | 2021-08-22 | CT_ITS ---
WS: [id number] CT CHEST, ABDOMEN, AND PELVIS TECHNIQUE: Contrast-enhanced CT of the chest, abdomen, and pelvis with coronal and sagittal reformatt ed images. CLINICAL INFORMATION: MALIGNANT NEOPLASM ENDOMETRIUM COMPARISON: CT 03/20 DLP: 2369.[address] scans at [facility] use at least one of these dose optimization techniques: automated e xposure control; mA and/or kV adjustment per patient size (includes targeted exams where dose is matc hed to clinical indication); or iterative reconstruction. CT CHEST: Moderate chronic emphysematous changes. A few scattered fibrotic reticular opacities in both lungs. N o acute pulmonary infiltrates. No focal pneumonia or pleural fluid. No mediastinal or hilar lymphaden opathy. Normal caliber thoracic aorta. No axillary lymphadenopathy. CT ABDOMEN AND PELVIS: Hepatomegaly. Diffuse fatty infiltration of the liver. Normal portal vein and splenic vein. Cholelith iasis. Mild splenomegaly. Adrenal glands are normal. Normal renal parenchymal enhancement. No hydrone phrosis. Small left renal cyst. Normal GE junction. Prior hysterectomy. Sigmoid diverticulosis. No evidence of acute diverticulitis. No adenopathy in the abdomen or pelvis. No evidence of metastatic disease in the chest abdomen or pelvis. Degenerative sc lerosis about the sacroiliac joints. Hypertrophic changes thoracic spine. Slight anterolisthesis L3 o n L4 and L4 on L5. Disc osteophyte complex T12-L1 eccentric to the right with mild central canal sten osis. CT/CT chest abd pel w con* IMPRESSION: 1. No evidence of metastatic disease in the chest abdomen or pelvis. 2. Hepatomegaly with diffuse fatty infiltration. Mild splenomegaly. 3. Sigmoid diverticulosis. 4. Prior hysterectomy. 5. No adenopathy in the chest abdomen or pelvis. 6. Cholelithiasis
[2021-08-22] MEDS: iohexol 300 mg/mL 50 mL Btl PO (13:19)
[2021-08-22] MEDS: iohexol 350 mg/mL 100 mL Btl IV (13:19)
== END 2021-08-22 09:38 | disposition home or self-care (01) ==
PROVIDERS: PCP Nurse Practitioner Family; Visit Provider Internal Medicine Medical Oncology
DX: C54.1 Malignant neoplasm of endometrium (principal); R16.0 Hepatomegaly, not elsewhere classified; K76.0 Fatty (change of) liver, not elsewhere classified; Z90.710 Acquired absence of both cervix and uterus; K80.20 Calculus of gallbladder without cholecystitis without obstruction; K57.30 Diverticulosis of large intestine without perforation or abscess without bleeding
CPT/HCPCS: 71260; 74177; Q9967

== ENCOUNTER 2021-10-08 08:46 | Outpatient (CLI) | payer MEDICARE, MEDICAID, SELFPAY ==
[2021-10-08 09:36] LABS: Basophils # 0.1 10^3/uL (0.0-0.1); Basophils % 0.6 %; Eosinophils # 0.3 10^3/uL (0.0-0.8); Eosinophils % 3.4 %; Hematocrit 36.1 % (37.0-47.0); Hemoglobin 11.2 g/dL (11.5-15.3); Lymphocytes # 1.6 10^3/uL (0.8-4.8); Lymphocytes % 18.5 %; Mean Corpuscular Hemoglobin 27.6 pg (28.0-34.0); Mean Corpuscular Volume 88.9 fl (81-99); Mean Platelet Volume 9.6 fL (7.4-10.4); Monocytes # 0.7 10^3/uL (0.2-0.9); Monocytes % 8.5 %; Neutrophils # 5.79 10^3/uL (1.8-7.7); Neutrophils % 68.6 %; Nucleated Red Blood Cells % 0 %; Platelet Count 243 10^3/cmm (130-400); Red Blood Count 4.06 10^6/uL (4.1-5.3); White Blood Count 8.4 10^3/uL (4.0-10.0)
[2021-10-08 10:07] LABS: Alanine Aminotransferase 21 U/L (0-33); Albumin Level 4.2 g/dL (3.5-5.2); Alkaline Phosphatase 106 IU/L (35-105); Anion Gap 12.3 (5-19); Aspartate Amino Transferase 20 U/L (0-32); Blood Urea Nitrogen 12 mg/dL (8-23); Calcium 8.8 mg/dL (8.5-10.5); Carbon Dioxide 27 mmol/L (22-29); Chloride 102 mmol/L (98-107); Globulin 2.6 g/dL (1.3-4.6); Glucose 116 mg/dL (65-115); Osmolality Calculated 285 mOsm/kg (285-295); Potassium 4.3 mmol/L (3.5-5.1); Sodium 137 mmol/L (136-145); Total Bilirubin 0.2 mg/dL (0.15-1.2); Total Protein 6.8 g/dL (6.6-8.7)
--- NOTE | 2021-10-12 10:30 | ONC FU_ITS ---
Dr. Li Patient Follow-Up Note Patient: Alycia Kurtz Unit #: [id number]: 1950 Dicatated By: Fede Li M.D.Date of Visit:Oct 08, 2021 Onc Med Follow-up/Prog Note Chief Complaint: Endometrial cancer. 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 She had presented with postmenopausal bleeding. Her transvaginal ultrasound on 11/13/2020 showed evidence of uterine leiomyoma in the fundus measuring 1.44 x 1.65 x 3.05 cm. The endometrium measured 1.44 cm. She underwent endometrial biopsy on 11/20/2020. Pathology showed grade 2 endometrioid adenocarcinoma. She was referred to Dr. Soto. On 01/03/2021 she underwent robotic assisted total laparoscopic hysterectomy, bilateral salpingo-oophorectomy, bilateral pelvic sentinel lymph node biopsies, and cystoscopy with left ureteral stent placement. Pathology again showed grade 2 endometrial endometrioid adenocarcinoma measuring 7 x 6.8 cm. The depth of deepest myometrial invasion was 13 mm with the maximum myometrial thickness at that point measuring of 17 mm. The ectocervical/vaginal cuff and the parametrial/paracervical margins were uninvolved, but the right ovary did show focal involvement with endometrioid adenocarcinoma. There was metastatic carcinoma identified in the left external iliac sentinel lymph node and there was micrometastasis noted in the right external iliac sentinel lymph node. With those findings, she was recommended to undergo postoperative chemoradiation followed by adjuvant chemotherapy with carboplatin/paclitaxel. Her other medical illnesses include hypertension, hyperlipidemia, type 2 diabetes, hypothyroidism, and asthma. She has chronic pain associated with degenerative arthritis and fibromyalgia. She has a history of ulcerative colitis, and she also has anxiety/depression. She has a history of smoking, previously up to 3 packs of cigarettes daily. She quit smoking in 2006. INTERIM HISTORY: She began radiation concurrently with weekly cisplatin chemotherapy on 03/26/2021. She tolerated the initial cisplatin infusion without acute toxicity, and she continued with her week 2 cisplatin on 04/02/2021, with week 3 on 04/09/2021, with week 4 on 04/17/2021 and with week 5 on 04/23/2021. She completed radiation on 04/29/2021 to a total dose of 4320 cGy. She completed 24 of 25 planned fractions. For some reason she failed to come in for the final treatment. On 05/08/2021 she was admitted to the hospital with pneumonia in association with COVID-19 virus infection. She was confined in total for a month and 10 days between acute care and rehab. As result of that illness, she did not receive brachytherapy or adjuvant chemotherapy. As of her follow-up visit on 08/13/2021 she was showing some recovery. She continued on expectant management for the endometrial cancer. Surveillance CT scans on 08/22/2021 showed no adenopathy or other evidence of metastatic disease in the chest, abdomen, or pelvis. There was evidence for hepatomegaly with diffuse fatty infiltration of the liver and mild splenomegaly. She is seen for a follow-up visit. She has been feeling better generally. She is now completely off supplemental oxygen, and she is no longer requiring pulmonary nebulizers. She is able to do light work. ECOG score is 1. She has good appetite. She has not had any fever. Her hot flashes are getting less frequent. She does complain of having sinus drainage and she has some cough associated with it. She still has some shortness of breath with activity. She does not complain of chest pain. A few weeks ago she had some nausea/vomiting and diarrhea, but that resolved. She has no other GI or complaints. She has some generalized aching. She has more significant pain in the neck/shoulders and ribs. She also complains that she wrenched her right knee last night. She has just occasional headache. She has no focal neurologic symptoms. Medications: Acidophilus 1 Tablet Tablet, chewable Oral daily, Atorvastatin Calcium 1 (80 mg) Tablet Oral at bedtime, Benazepril HCl 1 (40 mg) Tablet Oral daily, Cetirizine HCl 1 (10 mg) Tablet Oral daily, Cholecalciferol (1.25 mg ) Capsule Oral q 2 weeks, clonazePAM 1 (1 mg) Tablet Oral t.i.d., Diclofenac Sodium 1 (1 %) Gel (jelly) Topical four times a day PRN, Flonase Sensimist (27.5 mcg/spray) Suspension Nasal Take as Directed, Gabapentin 1 (100 mg) Capsule Oral t.i.d., glipiZIDE 1 (10 mg) Tablet Oral b.i.d., Guaiatussin AC (100-10 mg/5mL) Syrup Oral Take as Directed, Levothyroxine Sodium 1 (137 mcg) Tablet Oral every am, Meclizine HCl 1 (25 mg) Tablet Oral b.i.d. PRN, metFORMIN HCl 2 Tablet (of 500 mg) Oral b.i.d., Metoprolol Succinate ER 1 (25 mg) Tablet SR 24 HR Oral daily, traMADol HCl 1 (50 mg) Tablet Oral daily, Turmeric 1 Tablet Oral daily, Venlafaxine HCl ER 1 (150 mg) Capsule SR 24 HR Oral daily, Vitamin C Tablet Oral daily, Zinc Tablet Oral daily Allergies: Lyrica and Zocor. Vital Signs: Performed on Oct 08, 2021 09:48 Height - 65.00 in Weight - 241.4 lbs (LOW) BSA - 2.14 sq.m BMI - 40.17 (HIGH) Temperature - 97.2 F (LOW) Pulse - 94 /min Respiration - 18 /min BP - 135/75 mm(hg) O2 Sat - 98 % Pain - 7 Fatigue - 5 Physical Examination: Constitutional - She looks pretty good generally, Eyes - Sclerae nonicteric. Conjunctivae clear, ENMT - No lesions noted in the oral cavity, Hematologic/Lymphatic - No cervical, clavicular, or axillary adenopathy, Respiratory - Lungs sound clear with some decrease in air movement bilaterally, Cardiovascular - Heart rhythm is regular. There is no murmur, gallop, or rub noted, Abdomen - Mildly distended but soft. Liver and spleen are not enlarged. There is no abdominal mass or ascites noted and there is no inguinal adenopathy, Extremities - No edema, Neurologic - No focal neurologic deficits noted. Lab/Imaging: Test performed on Oct 08, 2021 09:24 Sodium 137 mmol/L Potassium 4.3 mmol/L Chloride 102 mmol/L CO2 27 mmol/L Anion Gap 12.3 BUN 12 mg/dL Creatinine 0.7 mg/dL Cr Clearance (Est) 131.1200 mL/min eGFR 83.0 mL/min Glucose 116 mg/dL Osmolality - Calculated 285 mOsm/kg Calcium 8.8 mg/dL Protein, Total 6.8 g/dL Albumin 4.2 g/dL Globulin 2.6 g/dL Bilirubin, Total 0.2 mg/dL ALT (SGPT) 21 U/L AST (SGOT) 20 U/L Alkaline Phosphatase 106 IU/L WBC 8.4 10 3/uL RBC 4.06 10 6/uL HGB 11.2 g/dL HCT 36.1 % MCV 88.9 fl MCH 27.6 pg MCHC 31.0 g/dL RDW 14.0 % Platelet Count 243 10 3/cmm MPV 9.6 fL Neutrophils 5.79 10 3/uL Lymphocytes 1.6 10 3/uL Monocytes 0.7 10 3/uL Eosinophils 0.3 10 3/uL Basophils 0.1 10 3/uL Neutrophil % 68.6 % Lymphocyte % 18.5 % Monocyte % 8.5 % Eosinophil % 3.4 % Basophils % 0.6 % NRBC % 0 % Problem List: 1. Grade 2 endometrioid adenocarcinoma of the endometrium, stage IIIC1 (pT3a, pN1a, M0). Mismatch repair analysis by IHC showed loss of expression of MLH1 and PMS2 and intact expression of MSH2 and MSH6. Methylation of the MLH1 promoter region was detected by MLH1 promoter region methylation assay. 2. Hypertension. 3. Hyperlipidemia. 4. Type 2 diabetes. 5. Obesity. 6. Hypothyroidism. 7. Allergic rhinitis and asthma. 8. Degenerative arthritis. 9. Fibromyalgia. 10. History of ulcerative colitis. 11. Anxiety/depression. 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 She underwent robotic assisted total laparoscopic hysterectomy, bilateral salpingo-oophorectomy, bilateral pelvic sentinel lymph node biopsies, and cystoscopy with left ureteral stent placement. Pathology showed focal involvement of the left left ovary and metastatic involvement in the bilateral external iliac sentinel lymph nodes. 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 Her germline testing was negative. With those findings she was recommended to undergo post operative chemoradiation followed by adjuvant carboplatin/paclitaxel chemotherapy. She began radiation concurrently with weekly cisplatin chemotherapy on 03/26/2021. She completed radiation on 04/29/2021 to a total dose of 4320 cGy. She completed 24 of 25 planned fractions. For some reason she failed to come in for the final treatment. During that time she received a total of 5 weekly infusions of cisplatin. On 05/08/2021 she was admitted to the hospital with pneumonia in association with COVID-19 virus infection. She was confined in total for a month and 10 days between acute care and rehab. She has been back home since mid May, but she is still requiring supplemental oxygen. As result of that illness, she did not receive brachytherapy or adjuvant chemotherapy. During follow-up she has been showing gradual recovery from the COVID-19 infection. Thus far there has been no evidence of recurrence of the endometrial cancer. She remains on observation/expectant management. I will see her again in 3 months. Signed By: Fede Li M.D. <<Signature on File>>
== END 2021-10-08 08:47 | disposition home or self-care (01) ==
PROVIDERS: PCP Nurse Practitioner Family; Visit Provider Internal Medicine Medical Oncology
DX: C54.1 Malignant neoplasm of endometrium (principal); E11.9 Type 2 diabetes mellitus without complications; E78.5 Hyperlipidemia, unspecified; E03.9 Hypothyroidism, unspecified; E66.9 Obesity, unspecified; I10 Essential (primary) hypertension; F41.9 Anxiety disorder, unspecified; F32.A Depression, unspecified; Z79.899 Other long term (current) drug therapy
CPT/HCPCS: 36591; 80053; 85025; 99214

== ENCOUNTER 2022-01-23 17:41 | Emergency (ER) | payer MEDICARE, MEDICAID, SELFPAY ==
[2022-01-23 17:47] VITALS: BP 107/68; PULSE 102; RESP 18; TEMP 36.6; O2SAT 97; BMI 40.6
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
--- NOTE | 2022-01-23 18:24 | XRR_ITS ---
PROCEDURE INFORMATION: Exam: XR Left Hip Exam date and time: 01/23/2022 7:10 PM Age: 71 years old Clinical indication: Hip pain; Left hip; Additional info: Injury TECHNIQUE: Imaging protocol: XR Left hip. Views: 2 or 3 views hip with pelvis when performed. COMPARISON: CT chest abd pel w con* 08/22/2021 10:54 AM FINDINGS: Bones/joints: No acute fracture. Soft tissues: Unremarkable. XR/XR hip LT 2-3V wo/w pel* [id number] IMPRESSION: No acute findings.
[2022-01-23] MEDS: HYDROcodone-acetaminophen 5-325 mg Tablet 1 TAB PO (19:52)
[2022-01-23 20:14] VITALS: BP 122/76; PULSE 103; RESP 20; O2SAT 97
== END 2022-01-23 20:08 | disposition home or self-care (01) ==
PROVIDERS: Emergency Provider Emergency Medicine; PCP Nurse Practitioner Family
DX: S29.012A Strain of muscle and tendon of back wall of thorax, initial encounter (principal); V43.62XA Car passenger injured in collision with other type car in traffic accident, initial encounter
CPT/HCPCS: 72125; 72128; 72131; 73502; 99283

== ENCOUNTER 2022-02-04 12:27 | Oncology outpatient (recurring) (ONCR) | payer MEDICARE, MEDICAID, SELFPAY ==
[2022-02-04 11:12] LABS: Basophils # 0.1 10^3/uL (0.0-0.1); Basophils % 0.5 %; Eosinophils # 0.2 10^3/uL (0.0-0.8); Eosinophils % 2.2 %; Hematocrit 39.1 % (37.0-47.0); Lymphocytes # 2.1 10^3/uL (0.8-4.8); Lymphocytes % 18.9 %; Mean Corpuscular HGB Conc 30.7 g/dL (30.0-36.0); Mean Corpuscular Hemoglobin 28.2 pg (28.0-34.0); Mean Corpuscular Volume 91.8 fl (81-99); Mean Platelet Volume 9.9 fL (7.4-10.4); Monocytes # 0.6 10^3/uL (0.2-0.9); Monocytes % 5.8 %; Neutrophils # 7.84 10^3/uL (1.8-7.7); Neutrophils % 71.9 %; Nucleated Red Blood Cells % 0 %; Platelet Count 287 10^3/cmm (130-400); Red Blood Count 4.26 10^6/uL (4.1-5.3); Red Cell Distribution Width 13.5 % (12.1-15.1); White Blood Count 10.9 10^3/uL (4.0-10.0)
[2022-02-04 11:35] LABS: Alanine Aminotransferase 26 U/L (0-33); Albumin Level 4.4 g/dL (3.5-5.2); Alkaline Phosphatase 123 IU/L (35-105); Anion Gap 14.2 (5-19); Aspartate Amino Transferase 16 U/L (0-32); Blood Urea Nitrogen 15 mg/dL (8-23); Calcium 9.1 mg/dL (8.5-10.5); Carbon Dioxide 26 mmol/L (22-29); Chloride 101 mmol/L (98-107); Glomerular Filtration Rate 71.1 mL/min (90-130); Glucose 150 mg/dL (65-115); Osmolality Calculated 288 mOsm/kg (285-295); Potassium 4.2 mmol/L (3.5-5.1); Sodium 137 mmol/L (136-145); Total Bilirubin 0.2 mg/dL (0.15-1.2); Total Protein 7.4 g/dL (6.6-8.7)
[2022-02-04 14:53] VITALS: BP 132/78; PULSE 78; RESP 18; TEMP 36.7
== END 2022-02-27 23:59 | disposition home or self-care (01) ==
PROVIDERS: PCP Nurse Practitioner Family; Referring Provider Obstetrics & Gynecology Gynecologic Oncology; Visit Provider Nurse Practitioner Family
DX: C54.1 Malignant neoplasm of endometrium (principal); Z90.710 Acquired absence of both cervix and uterus; Z90.722 Acquired absence of ovaries, bilateral; C77.5 Secondary and unspecified malignant neoplasm of intrapelvic lymph nodes; Z92.3 Personal history of irradiation; Z86.16 Personal history of COVID-19; Z79.899 Other long term (current) drug therapy
CPT/HCPCS: 36591; 80053; 85025; 99214

== ENCOUNTER 2022-04-22 06:15 | Outpatient (CLI) | payer MEDICARE, MEDICAID, SELFPAY ==
--- NOTE | 2022-04-22 06:15 | US_ITS ---
WS: [id number] RENAL ULTRASOUND HISTORY: URETERAL OBSTRICTION, LEFT COMPARISON: 07/26/2013 TECHNIQUE: 2-D and color Doppler imaging of the kidney submitted. Right kidney: 10.2 cm x 5.8 cm x 5.0 cm. Normal echogenicity with no hydronephrosis or mass. Left kidney: 11.3 cm x 5.1 cm x 5.9 cm. Normal echogenicity with no hydronephrosis or mass. Aorta: Normal. Urinary Bladder: Nondistended. US/US renal BI* [id number] IMPRESSION: Normal renal ultrasound.
== END 2022-04-22 06:16 | disposition home or self-care (01) ==
LOC: RAD 06:17
PROVIDERS: PCP Nurse Practitioner Family; Visit Provider Urology
DX: N13.5 Crossing vessel and stricture of ureter without hydronephrosis (principal)
CPT/HCPCS: 76770

== ENCOUNTER 2022-04-22 13:22 | Oncology outpatient (recurring) (ONCR) | payer MEDICARE, MEDICAID, SELFPAY ==
--- NOTE | 2022-04-22 15:30 | CT_ITS ---
WS: [id number] CT CHEST, ABDOMEN AND PELVIS WITH CONTRAST. HISTORY: Follow-up endometrial cancer. TECHNIQUE: Contiguous 5 mm axial imaging performed through the chest, abdomen and pelvis with IV cont rast, oral contrast has been provided. Coronal and sagittal reformats chest. Coronal and sagittal ref ormats through the abdomen and pelvis. All CT scans at [facility] use at least one of these d ose optimization techniques: automated exposure control; mA and/or kV adjustment per patient size (in cludes targeted exams where dose is matched to clinical indication); or iterative reconstruction. CONTRAST: Omnipaque 350; 95 mL IV. DLP: 1690.92 mGy.cm COMPARISON: 08/22/[address]: Pulmonary hyperinflation with multilobar areas of groundglass attenuation and fibrosis. No pulmonary mass or nodule identified in the interval. No pericardial or pleural effusions. Heart is no rmal size. No mediastinal or hilar adenopathy. Small stable lymph nodes with no increase in size or n umber. LEFT subclavian Mediport. Mild atherosclerosis aorta. Mild inferior esophageal wall thickening . 2 cm nodule LEFT breast is unchanged. Abdomen CT: Moderately enlarged liver with diffuse hepatic steatosis. A few scattered granulomata. No rmal portal vein. Cholelithiasis without acute cholecystitis. Normal spleen. Normal pancreas. No bile duct dilatation. Negative adrenal glands. Mild atherosclerosis aorta with no aneurysm. Several very small bilateral low-attenuation renal masses. These may be cysts. Too small to characterize completel y. Some of these within the upper pole the LEFT kidney are not simple cysts. Well-distended stomach. No small bowel obstruction. Mild diffuse constipation. No adenopathy or ascites. Ventral abdominal wall hernia. Pelvic CT: Prior hysterectomy. No ascites or pelvic adenopathy. Normal urinary bladder. Sclerotic focus RIGHT femoral neck typical for a bone island and is stable. No osteoblastic or osteol ytic bone disease. CT/CT chest abd pel w con* IMPRESSION: 1. No evidence for lymphadenopathy throughout the chest, abdomen or pelvis. 2. Chronic interstitial lung disease. Component of hypersensitivity pneumoniti s is probably present. Stable since 08/22/2021. 3. Prior hysterectomy. 4. Cholelithiasis without acute cholecystitis. 5. Too small to characterize bilateral renal cortical lesions. Evaluated on fo llow-up imaging. 6. Hepatic steatosis and hepatomegaly.
[2022-04-22] MEDS: iohexol 350 mg/mL 100 mL Btl IV (15:52)
[2022-04-22] MEDS: barium sulfate 450 mL Oral Susp PO (15:52)
[2022-04-22 16:24] LABS: Blood Urea Nitrogen 16 mg/dL (8-23); Glomerular Filtration Rate 61.9 mL/min (90-130)
== END 2022-04-30 23:59 | disposition home or self-care (01) ==
LOC: RAD 04-23 08:23 → ONCMED 04-29 04:35
PROVIDERS: PCP Nurse Practitioner Family; Referring Provider Obstetrics & Gynecology Gynecologic Oncology; Visit Provider Nurse Practitioner Family
DX: C54.1 Malignant neoplasm of endometrium (principal); Z90.710 Acquired absence of both cervix and uterus; Z90.722 Acquired absence of ovaries, bilateral; C77.5 Secondary and unspecified malignant neoplasm of intrapelvic lymph nodes; Z92.3 Personal history of irradiation; Z86.16 Personal history of COVID-19
CPT/HCPCS: 71260; 74177; 81003; 82565; 84520; 99213

== ENCOUNTER 2022-05-06 13:18 | Oncology outpatient (recurring) (ONCR) | payer MEDICARE, MEDICAID, SELFPAY ==
[2022-05-06 13:48] LABS: Basophils # 0.1 10^3/uL (0.0-0.1); Basophils % 0.7 %; Eosinophils # 0.3 10^3/uL (0.0-0.8); Eosinophils % 2.4 %; Hematocrit 39.6 % (37.0-47.0); Hemoglobin 12.5 g/dL (11.5-15.3); Lymphocytes # 2.1 10^3/uL (0.8-4.8); Lymphocytes % 20.3 %; Mean Corpuscular HGB Conc 31.6 g/dL (30.0-36.0); Mean Corpuscular Hemoglobin 28.5 pg (28.0-34.0); Mean Corpuscular Volume 90.4 fl (81-99); Mean Platelet Volume 9.9 fL (7.4-10.4); Monocytes # 0.7 10^3/uL (0.2-0.9); Monocytes % 6.4 %; Neutrophils # 7.29 10^3/uL (1.8-7.7); Neutrophils % 69.6 %; Nucleated Red Blood Cells % 0 %; Platelet Count 275 10^3/cmm (130-400); Red Blood Count 4.38 10^6/uL (4.1-5.3); Red Cell Distribution Width 13.7 % (12.1-15.1); White Blood Count 10.5 10^3/uL (4.0-10.0)
[2022-05-06 14:09] LABS: Alanine Aminotransferase 38 U/L (0-33); Albumin Level 4.8 g/dL (3.5-5.2); Alkaline Phosphatase 136 U/L (35-105); Anion Gap 13.3 (5-19); Aspartate Amino Transferase 32 U/L (0-32); Blood Urea Nitrogen 12 mg/dL (8-23); Calcium 9.5 mg/dL (8.5-10.5); Carbon Dioxide 28 mmol/L (22-29); Chloride 99 mmol/L (98-107); Globulin 2.9 g/dL (1.3-4.6); Glomerular Filtration Rate 82.7 mL/min (90-130); Glucose 176 mg/dL (65-115); Osmolality Calculated 286 mOsm/kg (285-295); Potassium 4.3 mmol/L (3.5-5.1); Sodium 136 mmol/L (136-145); Total Bilirubin 0.4 mg/dL (0.15-1.2); Total Protein 7.7 g/dL (6.6-8.7)
== END 2022-05-30 23:59 | disposition home or self-care (01) ==
PROVIDERS: PCP Nurse Practitioner Family; Visit Provider Internal Medicine Medical Oncology
DX: Z08 Encounter for follow-up examination after completed treatment for malignant neoplasm; Z85.41 Personal history of malignant neoplasm of cervix uteri; Z90.710 Acquired absence of both cervix and uterus; Z90.722 Acquired absence of ovaries, bilateral; Z86.16 Personal history of COVID-19; Z92.21 Personal history of antineoplastic chemotherapy; Z92.3 Personal history of irradiation; Z87.891 Personal history of nicotine dependence
CPT/HCPCS: 36591; 80053; 85025; 99213; 99214